=== PATIENT | female | born 1955 | race Caucasian/White ===

== ENCOUNTER 2019-05-02 06:39 | Emergency (ER) | payer MEDICARE ==
[~2019-05-02] VITALS: Ht 162.6 cm; Wt 40.8 kg
--- NOTE | 2019-05-02 06:45 | NUR ---
PT AAOX4. AMBULATORY WITH GAIT. C/O RT HAND PAIN, SWELLING, DISCOLORATION S/P TRIP & FALL ON STAIRS X LAST TUESDAY. PT ABLE TO MOVE EXTREMITY WITH FULL RANGE. AWAITING FOR MD FOR EVAL. DAS.
--- NOTE | 2019-05-02 07:10 | NUR ---
XRAY AT BEDSIDE
--- NOTE | 2019-05-02 08:24 | NUR ---
Patient discharged to home in stable condition. Written and verbal after care instructions given. Patient verbalizes understanding of instruction.
[2019-05-02 08:25] VITALS: BP 144/88
== END 2019-05-02 08:25 | disposition home or self-care (01) ==
LOC: ER 06:43
DX: S52.571A Other intraarticular fracture of lower end of right radius, initial encounter for closed fracture (principal); Z60.2 Problems related to living alone; W01.0XXA Fall on same level from slipping, tripping and stumbling without subsequent striking against object, initial encounter; Y93.89 Activity, other specified; Y92.89 Other specified places as the place of occurrence of the external cause; Y99.8 Other external cause status
CPT/HCPCS: 73110; 73130-TC

== ENCOUNTER 2021-11-09 09:14 | Inpatient (IN) | payer MEDICARE ==
[~2021-11-09] VITALS: Ht 162.6 cm; Wt 37.3 kg
--- NOTE | 2021-11-09 09:30 | NUR ---
BIB RA 878FROM HOME,C/O GENERALIZED WEAKNESS X 1 WEEK. ATTACHED TO MONITOR, HR ELEVATED, MD AWARE. PT IS A FEBRILE. PT LIVES AT HOME BY HERSELF AND STATED THE LAST WEEK SHE HAS BEEN FEELING WEAK AND DOES NOT HAVE ENOUGH ENERGY TO LEAVE HER HOUSE. AWAITING MD ORDERS.
--- NOTE | 2021-11-09 09:33 | NUR ---
IV ESTABLIHSED R AC 20G. LABS DRAWNA ND COLLECTED AT BEDSIDE.
--- NOTE | 2021-11-09 09:40 | NUR ---
PT ABLE TO AMBULATE TO THE RESTROOM WITH ASSISTANCE, URINE COLLECTED AND SENT.
--- NOTE | 2021-11-09 09:46 | NUR ---
COVID SWAB COLLECTED AND SENT TO LAB
[2021-11-09 10:00] LABS: EOSINOPHILS % (AUTO) 0.2 % (0.0-6.0); HEMATOCRIT 36 % (33-45); HEMOGLOBIN 11.7 g/dL (11.5-14.8); LYMPHOCYTES # (AUTO) 0.4 K/uL (0.8-4.8); LYMPHOCYTES % (AUTO) 5.1 % (20.0-44.0); MEAN CORPUSCULAR HGB CONC 33 g/dl (31.0-36.0); MEAN CORPUSCULAR VOLUME 77 fL (82-100); MONOCYTES # (AUTO) 0.3 K/uL (0.1-1.30); MONOCYTES % (AUTO) 3.6 % (2.0-12.0); NEUTROPHILS # (AUTO) 7.4 K/uL (1.8-8.9); NEUTROPHILS % (AUTO) 91.1 % (43.0-81.0); RED BLOOD CELL COUNT(AUTO) 4.65 MIL/uL (4.0-5.2); WHITE BLOOD COUNT (AUTO) 8.1 K/uL (4.3-11.0)
[2021-11-09 10:10] LABS: BILIRUBIN,URINE MODERATE (NEGATIVE); COLOR,URINE YELLOW (YELLOW); LEUKOCYTE ESTERASE ,URINE NEGATIVE (NEGATIVE); NITRITE, URINE NEGATIVE (NEGATIVE); PROTEIN,URINE TRACE mg/dl (NEGATIVE); UGLUCOSE NEGATIVE (NEGATIVE); UROBILINOGEN,URINE 0.2 EU/dL (0.2)
[2021-11-09] MEDS ORDERED: SERT100T12 PO (10:15)
[2021-11-09] MEDS ORDERED: QUET25TA PO (10:15)
[2021-11-09] MEDS ORDERED: LORA-259 PO (10:15)
[2021-11-09 10:18] LABS: BACTERIA,URINE None seen /HPF (None Seen); RBC,URINE 0-2 /HPF (0-2); SQUAMOUS EPITHELIAL CELL,UR Few /HPF (None Seen)
[2021-11-09 10:24] LABS: PLATELET COUNT (AUTO) 974 K/uL (150-450)
[2021-11-09 10:36] LABS: CALCIUM, SERUM 8.6 mg/dL (8.5-10.1); CARBON DIOXIDE 25 mmol/L (21-32); CHLORIDE 98 mmol/L (98-107); GLUCOSE 146 mg/dL (74-106); SODIUM SERUM 136 mmol/L (136-145); UREA NITROGEN, BLOOD 12 mg/dL (7-18)
[2021-11-09 10:56] LABS: ALANINE AMINOTRANSFERASE 28 U/L (12-78); ALBUMIN 2.5 g/dL (3.4-5.0); ALCOHOL, BLOOD < 3 mg/dL (0-0); ALKALINE PHOSPHATASE 119 U/L (46-116); ASPARTATE AMINOTRANSFERASE 25 U/L (15-37); BILIRUBIN,DIRECT 0.1 mg/dL (0.0-0.2); BILIRUBIN,TOTAL 0.5 mg/dL (0.2-1.0); TOTAL PROTEIN, SERUM 5.9 g/dL (6.4-8.2)
[2021-11-09] MEDS ORDERED: ACETAMINOPHEN 325 MG TABLET PO PRN (11:00)
[2021-11-09] MEDS ORDERED: MAG HYDROX/AL HYDROX/SIMETH 30 ML UDC PO PRN (11:00)
[2021-11-09] MEDS ORDERED: MAGNESIUM HYDROXIDE 30 ML UDC PO PRN (11:00)
[2021-11-09] MEDS ORDERED: ONDANSETRON HCL/PF 4 MG/2 ML VIAL IVP PRN (11:00)
[2021-11-09] MEDS ORDERED: Z GUARD REMEDY 4 OZ OINT TP PRN (11:00)
[2021-11-09 11:07] LABS: ACETAMINOPHEN 0 ug/ml (10-30)
--- NOTE | 2021-11-09 12:37 | NUR ---
ROOM 328; ALBERTO BELLO, WILL CALL BACK FOR REPORT
--- NOTE | 2021-11-09 13:16 | NUR ---
PT REPORT GIVEN TO ALBERTO RODRIGUEZ.
--- NOTE | 2021-11-09 13:16 | NUR ---
PT TRANSFERRED TO [facility] VIA RNEY. WARM HANDOFF GIVEN TO JENNIFER/EUGENIA DOMINGUEZ
--- NOTE | 2021-11-09 13:20 | NUR ---
RN OPENING NOTES PT ARRIVED ON UNIT AT 1315 WITH CHIEF COMPLAINT OF GENERALIZED WEAKNESS AND FAILURE TO THRIVE. A/O X 4 AND ABLE TO MAKE NEEDS KNOWN. DENIES PAIN AND NO RESPIRATORY DISTRESS NOTED AT THIS TIME. SHE IS ORIENTED TO UNIT AND ROOM. ALL NEEDS MET AT THIS TIME. CALL LIGHT WITHIN REACH. TABLE WITHIN EACH. BED IN LOW POSITION BED ALARM ON.
[2021-11-09] MEDS ORDERED: POTASSIUM CHLORIDE 20 MEQ TAB.PRT.SR PO ONE (15:00)
[2021-11-09] MEDS: ASPIRIN EC 81 MG TABLET.DR PO SCH (17:31)
[2021-11-09] MEDS: QUETIAPINE FUMARATE 25 MG TABLET PO SCH (17:31)
[2021-11-09 18:43] LABS: IRON, SERUM 40 ug/dl (50-175); TOTAL IRON BINDING CAPACITY 188 ug/dl (250-450)
[2021-11-09] MEDS: HYDROXYUREA 500 MG CAPSULE PO SCH (18:43)
[2021-11-09 18:56] LABS: FERRITIN 157 ng/mL (8-388)
--- NOTE | 2021-11-09 19:42 | NUR ---
MS RN NOTES PT RECEIVED IN BED A/O X4 ABLE TO MAKE NEEDS KNOW. IN NO PAIN. OR RESPIRATORY DISTRESS NOTED AT THIS TIME. PT ORIENTED TO UNIT AND ROOM. ALL NEEDS MET AT THIS TIME. CALL LIGHT WITHIN REACH. TABLE WITHIN EACH. BED IN LOW POSITION BED ALARM ON.
--- NOTE | 2021-11-09 19:45 | NUR ---
RN CLOSING NOTES PT IS A/O X 4 AND ABLE TO MAKE NEEDS KNOWN. DENIES PAIN AND NO RESPIRATORY DISTRESS NOTED AT THIS TIME. SHE IS ORIENTED TO UNIT AND ROOM. SWALLOWS PILLS WHOLE WITHOUT DIFFICULTY. ALL NEEDS MET AT THIS TIME. CALL LIGHT WITHIN REACH. TABLE WITHIN EACH. BED IN LOW POSITION BED ALARM ON.
[2021-11-09 20:00] VITALS: BP 124/69
[2021-11-10 06:39] LABS: BASOPHILS % (AUTO) 0.2 % (0.0-2.0); EOSINOPHILS % (AUTO) 0.1 % (0.0-6.0); HEMATOCRIT 32 % (33-45); HEMOGLOBIN 10.5 g/dL (11.5-14.8); LYMPHOCYTES # (AUTO) 0.5 K/uL (0.8-4.8); LYMPHOCYTES % (AUTO) 6.9 % (20.0-44.0); MEAN CORPUSCULAR HGB CONC 33 g/dl (31.0-36.0); MEAN CORPUSCULAR VOLUME 78 fL (82-100); MONOCYTES # (AUTO) 0.4 K/uL (0.1-1.30); MONOCYTES % (AUTO) 5.1 % (2.0-12.0); NEUTROPHILS # (AUTO) 6.4 K/uL (1.8-8.9); NEUTROPHILS % (AUTO) 87.7 % (43.0-81.0); PLATELET COUNT (AUTO) 827 K/uL (150-450); RED BLOOD CELL COUNT(AUTO) 4.15 MIL/uL (4.0-5.2); WHITE BLOOD COUNT (AUTO) 7.3 K/uL (4.3-11.0)
--- NOTE | 2021-11-10 06:54 | NUR ---
RN OPENING NOTES PT IS A/O X 4 AND ABLE TO MAKE NEEDS KNOWN. DENIES PAIN AND NO RESPIRATORY DISTRESS NOTED AT THIS TIME. SHE IS ORIENTED TO UNIT AND ROOM. SWALLOWS PILLS WHOLE WITHOUT DIFFICULTY. ALL NEEDS MET AT THIS TIME. CALL LIGHT WITHIN REACH. TABLE WITHIN EACH. BED IN LOW POSITION BED ALARM ON. PT FOR CT WITH CONTRAST OF THE ABDOMEN AND PELVIS WILL OBTAIN CONSENT.
[2021-11-10 06:58] LABS: CALCIUM, SERUM 8.2 mg/dL (8.5-10.1); CREATININE 0.9 mg/dL (0.6-1.3); MAGNESIUM 2.1 mg/dL (1.8-2.4); PHOSPHORUS 2.9 mg/dL (2.5-4.9); POTASSIUM 3.2 mmol/L (3.5-5.1)
--- NOTE | 2021-11-10 07:10 | NUR ---
MS RN OPENING NOTES RECEIVED PATIENT AWAKE IN BED, ON ROOM AIR NO S/S OF RESPIRATORY DISTRESS. A/Ox4, ABLE TO MAKE NEEDS KNOWN. NO COMPLAINT OF PAIN OR DISCOMFORT. IV ACCESS R AC #20 G SL. INTACT AND PATENT. INCONTINENT, ON BED REST. SKIN IS INTACT. CURRENTLY NPO EXCEPT MEDS FOR CT SCAN OF ABDOMEN. SAFETY MEASURES IN PLACE: BED LOCKED AND IN LOWEST POSITION, SIDE RAILS UP x2, CALL LIGHT WITHIN REACH, HOB ELEVATED. WILL CONTINUE TO MONITOR.
[2021-11-10] MEDS: PANTOPRAZOLE 40 MG TABLET.DR PO SCH (07:30)
[2021-11-10 08:00] VITALS: BP 136/73
[2021-11-10] MEDS: SERTRALINE HCL 50 MG TABLET PO SCH (08:11)
[2021-11-10] MEDS: HYDROXYUREA 500 MG CAPSULE PO SCH (08:12)
[2021-11-10] MEDS: QUETIAPINE FUMARATE 25 MG TABLET PO SCH ×2 (08:12→16:20)
[2021-11-10] MEDS: ASPIRIN EC 81 MG TABLET.DR PO SCH (08:13)
[2021-11-10] MEDS ORDERED: POTASSIUM CHLORIDE 20 MEQ TAB.PRT.SR PO ONE (10:00)
--- NOTE | 2021-11-10 10:03 | NUR ---
RN NOTES PATIENT BEING TAKEN DOWN FOR CAT SCAN ACCOMPANIED BY 2 RADIOLOGY TECHS. PATIENT LEFT IN STABLE CONDITION.
[2021-11-10] MEDS ORDERED: IOHEXOL-300 100 ML VIAL IV ONE (10:07)
[2021-11-10] MEDS ORDERED: IV NS 0.9% 250 ML IV ONE (10:07)
[2021-11-10] MEDS ORDERED: CT SWABBABLE VALVE TRANS SET 1 EA INFUS.SET MC ONE (10:08)
--- NOTE | 2021-11-10 10:30 | NUR ---
RN NOTES PATIENT RETURNED FROM CT SCAN, STABLE, WILL NOTIFY MD OF RESULTS SOON AVAILABLE.
[2021-11-10] MEDS: IV NS 0.9% 1,000 ML IV SCH ×2 (10:39→23:59)
[2021-11-10] MEDS: ENSURE ENLIVE 237 ML LIQUID (VANILLA) PO SCH ×2 (12:13→17:16)
[2021-11-10 12:41] LABS: LYMPHOCYTES % (MANUAL) 6 % (16-48); MONOCYTES % (MANUAL) 4 % (0-11.0); NEUTROPHILS % (MANUAL) 90 (42-76)
[2021-11-10] MEDS: LORAZEPAM 1 MG TABLET PO PRN (12:45)
[2021-11-10] MEDS ORDERED: ENSURE ENLIVE 237 ML LIQUID (VANILLA) PO SCH (13:00)
--- NOTE | 2021-11-10 13:31 | NUR ---
RN NOTES PATIENT EXPRESSED OVERWHELMING FEELING, PRN ATIVAN ADMINISTERED @1245. WILL CONTINUE TO MONITOR.
[2021-11-10 16:02] VITALS: BP 125/65
[2021-11-10] MEDS: FERROUS SULFATE (325 MG) 325 MG/TAB TABLET PO SCH (16:21)
--- NOTE | 2021-11-10 18:40 | NUR ---
MS RN CLOSING NOTES PATIENT AWAKE IN BED WATCHING TV, STABLE ON ROOM AIR NO S/S OF RESPIRATORY DISTRESS. A/Ox4, ABLE TO MAKE NEEDS KNOWN. NO COMPLAINT OF PAIN OR DISCOMFORT. IV ACCESS R AC #20 G SL. INTACT AND PATENT. CONTINENT, AMB WITH SUPERVISION. SKIN IS INTACT. ALL PRESCRIBED MEDICATION ADMINISTERED. SAFETY MEASURES MAINTAINED: BED LOCKED AND IN LOWEST POSITION, SIDE RAILS UP x2, CALL LIGHT WITHIN REACH, HOB ELEVATED. WILL ENDORSE TO NEXT SHIFT ANY ERIS.
--- NOTE | 2021-11-10 19:40 | NUR ---
MS RN OPENING NOTES RECEIVED PATIENT IN BED; AWAKE, ALERT AND ORIENTED X 4. ON ROOM AIR; TOLERATING WELL. BREATHING EVEN AND NONLABORED. NOT IN ANY FORM OF RESPIRATORY DISTRESS. ABLE TO MAKE NEEDS KNOWN. WITH IV ACCESS ON RIGHT ANTECUBITAL 18g: PATENT AND INTACT INFUSING WITH NS 1L REGULATED @ 75 ML/HR; FLUSHES WELL. NO C/O PAIN OR DISCOMFORT AT THIS TIME. SAFETY MEASURES IMPLEMENTED: CALL LIGHT AND TABLE WITHIN EASY REACH, SIDE RAILS UP X 2, BED IN LOWEST LOCKED POSITION. WILL CONTINUE PLAN OF CARE.
[2021-11-10 19:57] VITALS: BP 102/59
[2021-11-10 20:00] VITALS: BP 112/59
--- NOTE | 2021-11-11 07:05 | NUR ---
MS RN CLOSING NOTES PATIENT IN BED; AWAKE, A/O X 4. STABLE ON ROOM AIR. RESPIRATION EVEN AND NONLABORED. IN NO APPARENT DISTRESS. WITH IV ACCESS ON RIGHT ANTECUBITAL 18g: PATENT AND INTACT INFUSING WITH NS 1L REGULATED @ 75 ML/HR; FLUSHES WELL. NO C/O PAIN OR DISCOMFORT AT THIS TIME. ALL NEEDS ATTENDED. SAFETY MEASURES MAINTAINED: CALL LIGHT AND TABLE WITHIN EASY REACH, SIDE RAILS UP X 2, BED IN LOWEST LOCKED POSITION. ENDORSED TO MORNING SHIFT FOR ERIS.
[2021-11-11 07:20] LABS: BASOPHILS % (AUTO) 0.3 % (0.0-2.0); EOSINOPHILS % (AUTO) 0.2 % (0.0-6.0); HEMATOCRIT 33 % (33-45); HEMOGLOBIN 10.7 g/dL (11.5-14.8); LYMPHOCYTES # (AUTO) 1.1 K/uL (0.8-4.8); LYMPHOCYTES % (AUTO) 13.7 % (20.0-44.0); MEAN CORPUSCULAR HGB CONC 33 g/dl (31.0-36.0); MEAN CORPUSCULAR VOLUME 78 fL (82-100); MONOCYTES # (AUTO) 0.4 K/uL (0.1-1.30); MONOCYTES % (AUTO) 4.7 % (2.0-12.0); NEUTROPHILS # (AUTO) 6.3 K/uL (1.8-8.9); NEUTROPHILS % (AUTO) 81.1 % (43.0-81.0); RED BLOOD CELL COUNT(AUTO) 4.22 MIL/uL (4.0-5.2); WHITE BLOOD COUNT (AUTO) 7.8 K/uL (4.3-11.0)
--- NOTE | 2021-11-11 07:30 | NUR ---
RN Opening Note PT AOx4 able to express her own concerns. Patient with no signs of distress. IV shows no signs of infiltration, no pain reported on IV site. Patient able to reposition herself as needed.Will continue to monitor patient, administer medications as ordered and provide care as needed. All safety precautions taken, call light and table within reach, bed at lowest position.
[2021-11-11 07:39] LABS: CALCIUM, SERUM 8.7 mg/dL (8.5-10.1); CREATININE 0.9 mg/dL (0.6-1.3); POTASSIUM 4.3 mmol/L (3.5-5.1)
[2021-11-11 07:53] LABS: PLATELET COUNT (AUTO) 936 K/uL (150-450)
[2021-11-11 08:00] VITALS: BP 132/83
[2021-11-11] MEDS: ASPIRIN EC 81 MG TABLET.DR PO SCH (08:31)
[2021-11-11] MEDS: QUETIAPINE FUMARATE 25 MG TABLET PO SCH ×2 (08:31→16:41)
[2021-11-11] MEDS: SERTRALINE HCL 50 MG TABLET PO SCH (08:31)
[2021-11-11] MEDS: FERROUS SULFATE (325 MG) 325 MG/TAB TABLET PO SCH ×2 (08:31→16:41)
[2021-11-11] MEDS: PANTOPRAZOLE 40 MG TABLET.DR PO SCH (08:31)
[2021-11-11] MEDS: ENSURE ENLIVE 237 ML LIQUID (VANILLA) PO SCH ×3 (08:32→16:41)
[2021-11-11] MEDS: HYDROXYUREA 500 MG CAPSULE PO SCH ×2 (08:32→16:41)
[2021-11-11] MEDS: IV NS 0.9% 1,000 ML IV SCH (12:00)
[2021-11-11] MEDS ORDERED: SOD FERRIC GLUC 125 MG in IV NS 0.9% 100 ML IV SCH (14:00)
[2021-11-11] MEDS: LORAZEPAM 1 MG TABLET PO PRN (15:15)
[2021-11-11 16:00] VITALS: BP 135/70
[2021-11-11] MEDS: SOD FERRIC GLUC 125 MG in IV NS 0.9% 100 ML IV SCH (18:59)
--- NOTE | 2021-11-11 19:24 | NUR ---
RN Closing Notes PT AO x4, able to express her own concerns, states discomfort from rectal prolapse.Patient signed consent for procedure, filed in chart. Provided care and medications as prescribed. Patient remained safe throughout shift. All safety precautions taken, call light and table within reach and bed at lowest position.
--- NOTE | 2021-11-11 19:30 | NUR ---
RN OPENING NOTES RECEIVED PT IN BED, AWAKE, SITTING UPRIGHT, WATCHING TV. AOx4, ABLE TO MAKE NEEDS KNOWN. ON RA AND TOLERATING WELL. NO SOB NOTED. NO S/SX OF RESPIRATORY DISTRESS NOTED. IV ACCESS IN RFA #20G RUNNING NS @ 75 ML/HR. SAFETY PRECAUTIONS IN PLACE: BED IN LOWEST, LOCKED POSITION, SIDERAILS UPx2, AND BRAKES ON. TABLE AND CALL LIGHT WITHIN REACH. ALL NEEDS MET AT THIS TIME.
[2021-11-11 20:00] VITALS: BP 107/65
[2021-11-12] MEDS: IV NS 0.9% 1,000 ML IV SCH (00:33)
--- NOTE | 2021-11-12 00:38 | NUR ---
RN NOTES ADMINISTERED TYLENOL FOR CRAMPS PER MD ORDER.
--- NOTE | 2021-11-12 06:46 | NUR ---
RN CLOSING NOTES PT IN BED, AWAKE, SITTING UPRIGHT, WATCHING TV. AOx4, ABLE TO MAKE NEEDS KNOWN. ON RA AND TOLERATING WELL. NO SOB NOTED. NO S/SX OF RESPIRATORY DISTRESS NOTED. IV ACCESS IN RFA #20G RUNNING NS @ 75 ML/HR. ALL ORDERS CARRIED OUT. ALL NEEDS MET. PT KEPT CLEAN AND DRY. SAFETY PRECAUTIONS IN PLACE: BED IN LOWEST, LOCKED POSITION, SIDERAILS UPx2, AND BRAKES ON. TABLE AND CALL LIGHT WITHIN REACH. WILL ENDORSE TO ONCOMING SHIFT FOR ERIS.
--- NOTE | 2021-11-12 07:30 | NUR ---
MS RN OPENING NOTES RECEIVED PT IN BED, AWAKE, SITTING UPRIGHT, WATCHING TV. AOx4, ABLE TO MAKE NEEDS KNOWN. ON RA AND TOLERATING WELL. NO SOB NOTED. NO S/SX OF RESPIRATORY DISTRESS NOTED. IV ACCESS IN RIGHT WRIST #20G RUNNING NS @ 75 ML/HR. ALL SAFETY PRECAUTIONS IN PLACE: BED IN LOWEST, LOCKED POSITION, SIDERAILS UPx2, AND BRAKES ON. TABLE AND CALL LIGHT WITHIN REACH. ALL NEEDS ATTENDED. WILL CONTINUE TO MONITOR.
[2021-11-12] MEDS: PANTOPRAZOLE 40 MG TABLET.DR PO SCH (07:54)
[2021-11-12] MEDS: ENSURE ENLIVE 237 ML LIQUID (VANILLA) PO SCH ×2 (08:44→14:00)
[2021-11-12] MEDS: SERTRALINE HCL 50 MG TABLET PO SCH (08:45)
[2021-11-12] MEDS: QUETIAPINE FUMARATE 25 MG TABLET PO SCH (08:45)
[2021-11-12] MEDS: ASPIRIN EC 81 MG TABLET.DR PO SCH (08:45)
[2021-11-12] MEDS: HYDROXYUREA 500 MG CAPSULE PO SCH (08:45)
[2021-11-12] MEDS: FERROUS SULFATE (325 MG) 325 MG/TAB TABLET PO SCH (08:45)
[2021-11-12 09:07] LABS: *ANA ANTI-CENTROMERE B AB <0.2 AI (0.0-0.9); *ANA ANTI-DNA(DS) AB, QN 1 IU/mL (0-9); *ANA ANTI-JO-1 <0.2 AI (0.0-0.9); *ANA ANTICHROMATIN ANTIBODY <0.2 AI (0.0-0.9); *ANA RNP ANTIBODIES <0.2 AI (0.0-0.9); *ANA SJOGREN'S ANTI-SS-A <0.2 AI (0.0-0.9); *ANA SJOGREN'S ANTI-SS-B <0.2 AI (0.0-0.9); *ANAANTI-SCLERODERMA-70 AB <0.2 AI (0.0-0.9); *ANASMITH AB <0.2 AI (0.0-0.9)
[2021-11-12] MEDS: LORAZEPAM 1 MG TABLET PO PRN (14:00)
--- NOTE | 2021-11-12 14:00 | NUR ---
RN NOTES CALLED RASHEED FROM [facility] AT 1400 BY PHONE NUMBER [phone] AND GAVE REPORT FOR THE PATIENT.
[2021-11-12 14:23] LABS: BASOPHILS % (AUTO) 0.7 % (0.0-2.0); EOSINOPHILS % (AUTO) 1.8 % (0.0-6.0); HEMATOCRIT 27 % (33-45); HEMOGLOBIN 8.9 g/dL (11.5-14.8); LYMPHOCYTES # (AUTO) 0.3 K/uL (0.8-4.8); MEAN CORPUSCULAR HGB CONC 33 g/dl (31.0-36.0); MEAN CORPUSCULAR VOLUME 78 fL (82-100); MONOCYTES # (AUTO) 0.1 K/uL (0.1-1.30); MONOCYTES % (AUTO) 2.3 % (2.0-12.0); NEUTROPHILS # (AUTO) 4.9 K/uL (1.8-8.9); NEUTROPHILS % (AUTO) 89.2 % (43.0-81.0); PLATELET COUNT (AUTO) 482 K/uL (150-450); RED BLOOD CELL COUNT(AUTO) 3.48 MIL/uL (4.0-5.2); WHITE BLOOD COUNT (AUTO) 5.5 K/uL (4.3-11.0)
[2021-11-12] MEDS: SOD FERRIC GLUC 125 MG in IV NS 0.9% 100 ML IV SCH ×2 (14:45→14:53)
--- NOTE | 2021-11-12 15:21 | NUR ---
SS NOTE: SS consult requested to evaluate the pt.'s living situation. The pt. is a 66 year old female who was admitted to Med Surg for failure to thrive. Per EMR, the pt. currently lives alone at home [[id number] [facility] [id number]. PER documentation, the pt. has agreed to be discharged to [facility] [phone], this is a safe and appropriate discharge plan for patient considering her situation.
[2021-11-12] MEDS ORDERED: HYDR500C PO (15:44)
--- NOTE | 2021-11-12 16:00 | NUR ---
RN NOTES DISCHARGE PATIENT WITH STABLE VITAL SIGNS AND STABLE CONDITION. 2 MT ARRIVED. ALL THE BELONGINGS ACCOUNTED AND SIGNED FOR. IV SITE REMOVED. COVERED WITH DRY DRESSING , NO BLEEDING NOTED. ID BAND REMOVED. PATIENT WITH STABLE CONDITION. ALL THE DISCHARGE INSTRUCTIONS GIVEN TO TANISHA DOMINGUEZ AT FACILITY. PATIENT WILL HAVE BIOPSY AFTER DISCHARGE AND WILL FOLLOW UP WITH ONCOLOGIST AFTER DISCHARGE. ALL NEEDS ATTENDED. PATIENT LEFT HOSPITAL AT 1600 WITH STABLE CONDITION. MD AND CHARGE NURSE AWARE OF THE DISCHARGE.
== END 2021-11-12 16:30 | DRG 641 ==
LOC: ER 09:30 → MED 12:20
PROVIDERS: ATTEND Internal Medicine
DX: R62.7 Adult failure to thrive (principal); E44.0 Moderate protein-calorie malnutrition; Z68.1 Body mass index [BMI] 19.9 or less, adult; R64 Cachexia; F33.3 Major depressive disorder, recurrent, severe with psychotic symptoms; Z20.822 Contact with and (suspected) exposure to COVID-19; D75.839 Thrombocytosis, unspecified; E87.6 Hypokalemia; E88.09 Other disorders of plasma-protein metabolism, not elsewhere classified; D50.9 Iron deficiency anemia, unspecified; F41.9 Anxiety disorder, unspecified
CPT/HCPCS: 36415; 71260-TC; 80048-TC; 80076-TC; 81001; 82728-TC; 83540-TC; 83735-TC; 84100-TC; 85025-TC; 86140-TC; 86225; 86235; 86431-TC; 97116-TC; 97530-TC; C9803; G0378; G0480; J2916; J7030; J7050; Q9967

== ENCOUNTER 2021-12-09 15:23 | Inpatient (IN) | payer MEDICARE ==
[~2021-12-09] VITALS: Ht 162.6 cm; Wt 42.0 kg
[~2021-12-09 15:23] MED LIST: HYDR500C PO; LORA-259 PO; QUET25TA PO; SERT100T12 PO
[2021-12-09] MEDS ORDERED: ONDANSETRON HCL/PF 4 MG/2 ML VIAL IVP ONE (16:00)
[2021-12-09] MEDS ORDERED: IV NS 0.9% 1,000 ML BAG IV ONE (16:00)
--- NOTE | 2021-12-09 16:20 | NUR ---
IV LINE ESTABLISHED ON JOHNNY #20, BLOOD DRAWN AND SENT TO LAB
[2021-12-09] MEDS ORDERED: ONDANSETRON HCL/PF 4 MG/2 ML VIAL ONE (16:28)
--- NOTE | 2021-12-09 16:30 | NUR ---
CONSENT FOR BLOOD TRANSFUSION SIGNED BY PT AND PLACED IN THE CHART.
[2021-12-09 16:36] LABS: BASOPHILS # (AUTO) 0.1 K/uL (0.0-0.2); BASOPHILS % (AUTO) 0.7 % (0.0-2.0); HEMATOCRIT 23 % (33-45); LYMPHOCYTES # (AUTO) 0.8 K/uL (0.8-4.8); LYMPHOCYTES % (AUTO) 11.7 % (20.0-44.0); MEAN CORPUSCULAR HGB CONC 31 g/dl (31.0-36.0); MEAN CORPUSCULAR VOLUME 88 fL (82-100); MONOCYTES # (AUTO) 0.3 K/uL (0.1-1.30); MONOCYTES % (AUTO) 4.6 % (2.0-12.0); PLATELET COUNT (AUTO) 433 K/uL (150-450); RED BLOOD CELL COUNT(AUTO) 2.56 MIL/uL (4.0-5.2)
[2021-12-09] MEDS ORDERED: ONDA4TAB5 PO (16:47)
[2021-12-09] MEDS ORDERED: HYDR500C2 PO (16:47)
[2021-12-09] MEDS ORDERED: MAG30ORA PO (16:47)
[2021-12-09] MEDS ORDERED: ASPI-1420 PO (16:47)
[2021-12-09] MEDS ORDERED: MAGN400O6 PO (16:47)
[2021-12-09] MEDS ORDERED: NA P133E RC (16:47)
[2021-12-09] MEDS ORDERED: FERR325T23 PO (16:47)
[2021-12-09] MEDS ORDERED: DOCU-141 PO (16:47)
[2021-12-09] MEDS ORDERED: VITA1TAB56 PO (16:47)
[2021-12-09] MEDS ORDERED: PANT40TA2 PO (16:47)
[2021-12-09] MEDS ORDERED: ACET-868 PO (16:47)
--- NOTE | 2021-12-09 17:04 | NUR ---
COVID SWAB COLLECTED AND SENT TO LAB
--- NOTE | 2021-12-09 17:07 | NUR ---
HGB 7.0/HCT 23; DR ALVARADO MADE AWARE.
[2021-12-09 17:11] LABS: ALANINE AMINOTRANSFERASE 19 U/L (12-78); ALBUMIN 2.3 g/dL (3.4-5.0); ALKALINE PHOSPHATASE 75 U/L (46-116); ASPARTATE AMINOTRANSFERASE 24 U/L (15-37); BILIRUBIN,DIRECT 0.1 mg/dL (0.0-0.2); BILIRUBIN,TOTAL 0.2 mg/dL (0.2-1.0); CALCIUM, SERUM 8.2 mg/dL (8.5-10.1); CARBON DIOXIDE 31 mmol/L (21-32); CHLORIDE 103 mmol/L (98-107); CREATININE 0.6 mg/dL (0.6-1.3); GLUCOSE 94 mg/dL (74-106); LIPASE 85 U/L (73-393); POTASSIUM 3.5 mmol/L (3.5-5.1); SODIUM SERUM 139 mmol/L (136-145); TOTAL PROTEIN, SERUM 5.5 g/dL (6.4-8.2); UREA NITROGEN, BLOOD 12 mg/dL (7-18)
--- NOTE | 2021-12-09 17:13 | NUR ---
[facility] PAGED
[2021-12-09] MEDS ORDERED: PANTOPRAZOLE 40 MG VIAL ONE (18:15)
[2021-12-09] MEDS ORDERED: PANTOPRAZOLE 40 MG VIAL IV ONE (18:30)
[2021-12-09 18:56] LABS: BAND % (MANUAL) 1 % (0.0-5.0); EOSINOPHILS % (MANUAL) 11 % (0-4); LYMPHOCYTES % (MANUAL) 13 % (16-48); MONOCYTES % (MANUAL) 3 % (0-11.0); NEUTROPHILS % (MANUAL) 72 (42-76)
[2021-12-09] MEDS ORDERED: MAGNESIUM HYDROXIDE 30 ML UDC PO PRN ×2 (19:00)
[2021-12-09] MEDS ORDERED: Z GUARD REMEDY 4 OZ OINT TP PRN (19:00)
[2021-12-09] MEDS ORDERED: ONDANSETRON HCL/PF 4 MG/2 ML VIAL IVP PRN (19:00)
[2021-12-09] MEDS ORDERED: ACETAMINOPHEN 325 MG TABLET PO PRN ×2 (19:00)
[2021-12-09] MEDS ORDERED: MAG HYDROX/AL HYDROX/SIMETH 30 ML UDC PO PRN ×2 (19:00)
--- NOTE | 2021-12-09 20:19 | NUR ---
REPORT GIVEN TO STEPHEN iKngW FOR ERIS
--- NOTE | 2021-12-09 20:42 | NUR ---
PT TRANSFERRED TO [facility] VIA ACLS PROTOCOL. VSS. ALL BELONGINGS WITH PT.
--- NOTE | 2021-12-09 21:30 | NUR ---
AUTOMATIC WASHER MECHANICBEACH LIFEGUARD NOTE PATIENT ARRIVED FROM ER, PATIENT ALERT/ORIENTED X 3, PT ABLE TO MAKE NEEDS KNOWN. PATIENT DENIES PAIN AT THIS TIME. PATIENT STABLE ON RA, NO S/S OF DISTRESS OR SOB NOTED, BREATHING EVEN AND UNLABORED. EXTERNAL PAPER REWINDER PLACED ON PATIENT, PATIENT SINUS RHYTHM. IV ACCESS ON RIGHT AC #20G INTACT BUT NOT FLUSHING, NEW IV INSERTED ON LEFT FOREARM #20G. CONSENT FORM FOR BLOOD TRANSFUSION SIGNED BY PATIENT. ORIENTED PATIENT TO ROOM AND HOW TO USE CALL LIGHT. PATIENT AMBULATORY. SAFETY MEASURES IN PLACE: CALL LIGHT WITHIN REACH, SIDE RAILS UP X 2, BED LOCKED IN LOWEST POSITION, BED ALARM ON. WILL CONTINUE TO MONITOR PATIENT
[2021-12-09 22:00] VITALS: BP 130/70
[2021-12-09 22:16] VITALS: BP 123/57
[2021-12-09 22:46] VITALS: BP 130/63
[2021-12-10] VITALS (7 sets, daily range): BP systolic 123–142; BP diastolic 46–73
--- NOTE | 2021-12-10 01:04 | NUR ---
POULTRY HUSBANDRY WORKER NOTE BLOOD TRANSFUSION FINISHED INFUSING, PATIENT TOLERATED WELL, NO ADVERSE EFFECTS NOTED. VITAL SIGNS WNL. WILL CONTINUE TO MONITOR PATIENT
[2021-12-10 06:20] LABS: EOSINOPHILS % (AUTO) 15.3 % (0.0-6.0); HEMATOCRIT 24 % (33-45); LYMPHOCYTES # (AUTO) 0.5 K/uL (0.8-4.8); LYMPHOCYTES % (AUTO) 11.1 % (20.0-44.0); MEAN CORPUSCULAR HGB CONC 33 g/dl (31.0-36.0); MEAN CORPUSCULAR VOLUME 86 fL (82-100); MONOCYTES # (AUTO) 0.2 K/uL (0.1-1.30); MONOCYTES % (AUTO) 5.9 % (2.0-12.0); NEUTROPHILS # (AUTO) 2.8 K/uL (1.8-8.9); NEUTROPHILS % (AUTO) 66.7 % (43.0-81.0); PLATELET COUNT (AUTO) 382 K/uL (150-450); RED BLOOD CELL COUNT(AUTO) 2.85 MIL/uL (4.0-5.2); WHITE BLOOD COUNT (AUTO) 4.2 K/uL (4.3-11.0)
[2021-12-10 06:37] LABS: ALBUMIN 1.9 g/dL (3.4-5.0); BILIRUBIN,TOTAL 0.2 mg/dL (0.2-1.0); CALCIUM, SERUM 7.8 mg/dL (8.5-10.1); CREATININE 0.5 mg/dL (0.6-1.3); MAGNESIUM 2.1 mg/dL (1.8-2.4); PHOSPHORUS 3.3 mg/dL (2.5-4.9); POTASSIUM 3.4 mmol/L (3.5-5.1); TOTAL PROTEIN, SERUM 4.8 g/dL (6.4-8.2)
--- NOTE | 2021-12-10 06:51 | NUR ---
CUT OFF MAN CLOSING NOTE PATIENT AWAKE IN BED, ALERT/ORIENTED X 4, PT ABLE TO MAKE NEEDS KNOWN. NO C/O PAIN THIS SHIFT. PATIENT STABLE ON RA, NO S/S OF DISTRESS OR SOB NOTED, BREATHING EVEN AND UNLABORED. PATIENT ON EXTERNAL JAVA WEB ARCHITECT READING SINUS RHYTHM, HR: 83. PATIENT AMBULATORY TO BATHROOM, STEADY GAIT. PATIENT REPORTS SOME INCONTINENCE AND RECTAL BLEEDING, HAS BEEN HAPPENING FOR ABOUT A MONTH PER PATIENT. IV ACCESS ON LEFT FOREARM #20G INTACT AND SALINE LOCKED. PER PATIENT, WISHES TO BE DNR/DNI, WILL ENDORSE TO DAYSHIFT NURSE. PATIENT SKIN INTACT, SOME SACRAL REDNESS NOTED. MEDICATIONS GIVEN ORDERED, PT NEEDS MET THROUGHOUT SHIFT. SAFETY MEASURES IN PLACE: CALL LIGHT WITHIN REACH, SIDE RAILS UP X 2, BED LOCKED IN LOWEST POSITION. WILL ENDORSE TO DAYSHIFT NURSE FOR CONTINUITY OF CARE
--- NOTE | 2021-12-10 08:20 | NUR ---
MEDICAL EQUIPMENT REPAIR TECHNICIAN OPENING NOTES RECEIVED PATIENT RESTING IN BED. PATIENT IS A/O X 4. PATIENT IS AMBULATORY WITH BRP. IV ACCESS IS AT L FOREARM, 20 G SALINE LOCK. IV SITE IS PATENT AND DRY. NO S/S OF REDNESS NOR SWELLING. ON TELE MONITOR: SINUS RHYTHM AT 80'S BPM
[2021-12-10] MEDS ORDERED: POTASSIUM CHLORIDE 20 MEQ TAB.PRT.SR PO SCH (09:00)
[2021-12-10] MEDS: PANTOPRAZOLE 40 MG TABLET.DR PO SCH (09:04)
[2021-12-10] MEDS: QUETIAPINE FUMARATE 25 MG TABLET PO SCH ×2 (09:05→17:39)
[2021-12-10] MEDS: FERROUS SULFATE (325 MG) 325 MG/TAB TABLET PO SCH (09:05)
[2021-12-10] MEDS: DOCUSATE SODIUM 100 MG CAPSULE PO SCH (09:05)
--- NOTE | 2021-12-10 10:00 | NUR ---
PATIENT HAS BEEN SLEEPING IN BED WITH THE HOB ELEVATED > 45 DEGREE. OFFERED TO LOWER THE HOB, SHE SAID "I FEEL COMFORTABLE TIS WAY." SHE HAS BEEN SLEEPING IN BED QUIETLY, NO REPORTED PAIN NOR DISCOMFORT.
[2021-12-10] MEDS: ENSURE ENLIVE 237 ML LIQUID (VANILLA) PO SCH ×2 (11:39→17:39)
--- NOTE | 2021-12-10 18:56 | NUR ---
AUTO CLUB TRAVEL COUNSELOR CLOSING NOTES: RECEIVING PATIENT IN BED. ALERT/ORIENTED X 4. PT ABLE TO MAKE NEEDS KNOWN. NO C/O PAIN. PATIENT IS ON RA, TOLERATED WELL. NO S/S OF RESPIRATORY DISTRESS . PATIENT IS AMBULATORY TO BATHROOM, STEADY GAIT. IV ACCESS ON LEFT FOREARM #20G INTACT AND SALINE LOCKED. PATIENT SKIN INTACT. PT NEEDS MET THROUGHOUT SHIFT. SAFETY MEASURES IN PLACE: CALL LIGHT WITHIN REACH, SIDE RAILS UP X 2, BED LOCKED IN LOWEST POSITION. WILL ENDORSE TO NEXT SHIFT NURSE FOR CONTINUING CARE
--- NOTE | 2021-12-10 19:59 | NUR ---
SAMPLE FINISHER OPENING NOTE RECEIVED PATIENT AWAKE IN BED, ALERT/ORIENTED X 4, PT ABLE TO MAKE NEEDS KNOWN. PATIENT STABLE ON RA, NO S/S OF DISTRESS OR SOB NOTED, BREATHING EVEN AND UNLABORED. PATIENT ON EXTERNAL PROTEIN SCIENTIST READING SINUS RHYTHM, HR: 97. PATIENT LYING COMFORTABLY, NO C/O OF PAIN AT THIS TIME. SAFETY MEASURES IN PLACE: CALL LIGHT WITHIN REACH, SIDE RAILS UP X 2, BED LOCKED IN LOWEST POSITION, BED ALARM ON. WILL CONTINUE TO MONITOR PATIENT
--- NOTE | 2021-12-10 22:20 | NUR ---
MS RN NOTE PATIENT STATED SHE HASN'T HAD BOWEL MOVEMENT FOR SEVERAL DAYS, HAD 2 SMALL BOWEL MOVEMENTS THIS AFTERNOON, PT STILL REPORTING CONSTIPATION. MILK OF MAGNESIA GIVEN ORDERED PER PATIENT REQUEST
[2021-12-11] VITALS: BP_SYST 123; BP_SYST 133; BP_DIAS 46; BP_DIAS 64
[2021-12-11 04:00] VITALS: BP 154/89
[2021-12-11] MEDS ORDERED: SORBITOL SOLUTION 70% 30 ML SOLUTION PO ONE (06:00)
--- NOTE | 2021-12-11 06:41 | NUR ---
SEWAGE TREATMENT PLANT OPERATOR CLOSING NOTE PATIENT AWAKE IN BED, ALERT/ORIENTED X 4, PT ABLE TO MAKE NEEDS KNOWN. PATIENT STABLE ON RA, NO S/S OF DISTRESS OR SOB NOTED, BREATHING EVEN AND UNLABORED. PATIENT ON EXTERNAL FASHION INTERN READING SINUS RHYTHM, HR: 92. NO SIGNIFICANT CHANGES THIS SHIFT, PT SLEPT COMFORTABLY THROUGH THE NIGHT. PATIENT NEEDS MET THROUGHOUT SHIFT. SAFETY MEASURES IN PLACE: CALL LIGHT WITHIN REACH, SIDE RAILS UP X 2, BED LOCKED IN LOWEST POSITION, BED ALARM ON. WILL ENDORSE TO DAY SHIFT NURSE FOR CONTINUITY OF CARE
[2021-12-11 07:56] LABS: CALCIUM, SERUM 8.1 mg/dL (8.5-10.1); CREATININE 0.5 mg/dL (0.6-1.3); POTASSIUM 3.6 mmol/L (3.5-5.1)
[2021-12-11 08:00] VITALS: BP 143/65
[2021-12-11] MEDS: ENSURE ENLIVE 237 ML LIQUID (VANILLA) PO SCH ×3 (08:29→18:00)
[2021-12-11] MEDS ORDERED: HYDROXYUREA 500 MG CAPSULE PO SCH (09:00)
[2021-12-11 09:13] LABS: BASOPHILS # (AUTO) 0.1 K/uL (0.0-0.2); BASOPHILS % (AUTO) 1.1 % (0.0-2.0); EOSINOPHILS % (AUTO) 15.4 % (0.0-6.0); HEMATOCRIT 25 % (33-45); LYMPHOCYTES # (AUTO) 0.4 K/uL (0.8-4.8); LYMPHOCYTES % (AUTO) 8.6 % (20.0-44.0); MEAN CORPUSCULAR HGB CONC 32 g/dl (31.0-36.0); MEAN CORPUSCULAR VOLUME 86 fL (82-100); MONOCYTES # (AUTO) 0.2 K/uL (0.1-1.30); MONOCYTES % (AUTO) 4.6 % (2.0-12.0); NEUTROPHILS # (AUTO) 3.5 K/uL (1.8-8.9); NEUTROPHILS % (AUTO) 70.3 % (43.0-81.0); PLATELET COUNT (AUTO) 398 K/uL (150-450); RED BLOOD CELL COUNT(AUTO) 2.87 MIL/uL (4.0-5.2)
[2021-12-11] MEDS: DOCUSATE SODIUM 100 MG CAPSULE PO SCH (10:09)
[2021-12-11] MEDS: LORAZEPAM 1 MG TABLET PO PRN (10:09)
[2021-12-11] MEDS: PANTOPRAZOLE 40 MG TABLET.DR PO SCH (10:09)
[2021-12-11] MEDS: QUETIAPINE FUMARATE 25 MG TABLET PO SCH ×2 (10:09→18:00)
[2021-12-11] MEDS: FERROUS SULFATE (325 MG) 325 MG/TAB TABLET PO SCH (10:09)
[2021-12-11 12:00] VITALS: BP 132/72
[2021-12-11 14:10] LABS: C-REACTIVE PROTEIN 0.8 mg/dL (0.0-0.9)
[2021-12-11 14:28] LABS: THYROID STIMULATING HORMONE 2.573 uIU/mL (0.358-3.74)
[2021-12-11] MEDS ORDERED: PEG 3350/NA SULF,BICARB,CL/KCL 4,000 ML BOTTLE PO ONE (18:00)
[2021-12-11 18:07] VITALS: BP 128/68
--- NOTE | 2021-12-11 19:30 | NUR ---
noc rn opening note received patient in bed, with HOB elevated. a/ox4. no s/s of apparent distress in room air. tele monitor reading st with 103bpm. lt. fa#20g on saline lock. safety in place. call light within reach, oriented and encouraged with the use of call light. will continue with the plan of care for patient.
--- NOTE | 2021-12-11 19:55 | NUR ---
patient signed consents at this time.
[2021-12-11 20:00] VITALS: BP 132/72
--- NOTE | 2021-12-11 20:16 | NUR ---
ELECTRICIAN STATION ASSISTANT CLOSING NOTE PATIENT AWAKE IN BED, ALERT/ORIENTED X 4, ABLE TO MAKE NEEDS KNOWN. PATIENT STABLE ON RA WITH 02 SAT OF 99%, NO S/S OF DISTRESS OR SOB NOTED, BREATHING EVEN AND UNLABORED. PATIENT ON EXTERNAL GROUNDS/MAINTENANCE SPECIALIST READING SINUS RHYTHM WITH HR 92. ALL SAFETY MEASURES IN PLACE: CALL LIGHT WITHIN REACH, SIDE RAILS UP X 2, BED LOCKED IN LOWEST POSITION, BED ALARM ON. WILL ENDORSE TO VECTOR CONTROL ASSISTANT NURSE TO OBTAIN CONSENTS FOR COLONOSCOPY AND FOR PROCEDURE PREP FOR CONTINUITY OF CARE.
[2021-12-12] VITALS: BP_SYST 135; BP_SYST 136; BP_DIAS 67; BP_DIAS 78
--- NOTE | 2021-12-12 07:44 | NUR ---
RN OPENING NOTE PATIENT AWAKE IN BED RESTING. A/O X4, NO PAIN NOTED AT THIS TIME. ON ROOM AIR, NO DISTRESS OR SHORTNESS OF BREATH NOTED. IV ACCESS LFA #20G, INTACT, PATENT AND FLUSHING WELL. PATIENT ON EXTERNAL ACID CUTTER WITH CURRENT READING OF SR AND HR OF 99, NO CARDIAC DISTRESS NOTED. FALL AND SAFETY MEASURES IN PLACE, BED ALARM ON, BED IN LOW AND LOCK POSITION, CALL LIGHT AND TABLE WITHIN EASY REACH, SIDE RAILS UP X2. WILL CONTINUE TO MONITOR.
[2021-12-12 08:00] VITALS: BP 129/74
[2021-12-12] MEDS: ENSURE ENLIVE 237 ML LIQUID (VANILLA) PO SCH ×3 (08:00→17:07)
[2021-12-12] MEDS: SERTRALINE HCL 50 MG TABLET PO SCH (08:19)
[2021-12-12] MEDS: DOCUSATE SODIUM 100 MG CAPSULE PO SCH (08:19)
[2021-12-12] MEDS: PANTOPRAZOLE 40 MG TABLET.DR PO SCH (08:19)
[2021-12-12] MEDS: LORAZEPAM 1 MG TABLET PO PRN (08:20)
[2021-12-12] MEDS: FERROUS SULFATE (325 MG) 325 MG/TAB TABLET PO SCH ×2 (08:20→17:06)
[2021-12-12] MEDS: QUETIAPINE FUMARATE 25 MG TABLET PO SCH ×2 (08:20→17:06)
[2021-12-12 12:00] VITALS: BP 139/76
--- NOTE | 2021-12-12 12:42 | NUR ---
RN NOTE PATIENT'S COLONOSCOPY IS GOING TO BE RESCHEDULE FOR TUESDAY AND PATIENT DIET CAN BE RESUME PER DOCTOR GABRIELLE. COLONOSCOPY WAS RESCHEDULE BECAUSE PATIENT HAVE 1/4 BOTTLE OF GOLYTELY LEFT, PATIENT STILL HAVING BOWEL MOVEMENT BUT, NOT CLEAR YET, DOCTOR KARLI BOO INFORMED, CHARGE NURSE AWARE.
[2021-12-12 16:00] VITALS: BP 122/64
[2021-12-12 17:29] LABS: BASOPHILS # (AUTO) 0.1 K/uL (0.0-0.2); BASOPHILS % (AUTO) 0.9 % (0.0-2.0); EOSINOPHILS % (AUTO) 12.5 % (0.0-6.0); HEMATOCRIT 26 % (33-45); HEMOGLOBIN 8.4 g/dL (11.5-14.8); LYMPHOCYTES # (AUTO) 0.8 K/uL (0.8-4.8); LYMPHOCYTES % (AUTO) 11.8 % (20.0-44.0); MEAN CORPUSCULAR HGB CONC 33 g/dl (31.0-36.0); MEAN CORPUSCULAR VOLUME 87 fL (82-100); MONOCYTES # (AUTO) 0.4 K/uL (0.1-1.30); MONOCYTES % (AUTO) 6.1 % (2.0-12.0); NEUTROPHILS # (AUTO) 4.5 K/uL (1.8-8.9); NEUTROPHILS % (AUTO) 68.7 % (43.0-81.0); PLATELET COUNT (AUTO) 386 K/uL (150-450); RED BLOOD CELL COUNT(AUTO) 2.96 MIL/uL (4.0-5.2); WHITE BLOOD COUNT (AUTO) 6.5 K/uL (4.3-11.0)
--- NOTE | 2021-12-12 19:05 | NUR ---
RN CLOSING NOTE PATIENT AWAKE IN BED RESTING. A/O X4, NO PAIN NOTED AT THIS TIME. ON ROOM AIR, NO DISTRESS OR SHORTNESS OF BREATH NOTED. IV ACCESS LFA #20G, INTACT, PATENT AND FLUSHING WELL. PATIENT ON EXTERNAL CONDEMNATION ENGINEER WITH CURRENT READING OF SR AND HR OF 99, NO CARDIAC DISTRESS NOTED. SCHEDULE MEDICATIONS ADMINISTERED. FALL AND SAFETY MEASURES IN PLACE, BED ALARM ON, BED IN LOW AND LOCK POSITION, CALL LIGHT AND TABLE WITHIN EASY REACH, SIDE RAILS UP X2. WILL ENDORSE TO VESSEL SCRAPPER.
--- NOTE | 2021-12-12 19:55 | NUR ---
RECEIVED PATIENT IN BED, ALERT AND ORIENTED X4, ROOM AIR, NO COMPLAIN OF PAIN, UPGRADED DIET TO CLEAR LIQUID, NO COMPLAIN OF N/V, KEPT SAFE, CALL LIGHT WITHIN REACH.
[2021-12-12 20:00] VITALS: BP 122/67
[2021-12-13] VITALS: BP 132/73
[2021-12-13 04:00] VITALS: BP 137/69
[2021-12-13 05:59] LABS: BASOPHILS # (AUTO) 0.1 K/uL (0.0-0.2); BASOPHILS % (AUTO) 1.4 % (0.0-2.0); EOSINOPHILS % (AUTO) 20.2 % (0.0-6.0); HEMATOCRIT 23 % (33-45); HEMOGLOBIN 7.4 g/dL (11.5-14.8); LYMPHOCYTES # (AUTO) 0.7 K/uL (0.8-4.8); LYMPHOCYTES % (AUTO) 14.1 % (20.0-44.0); MEAN CORPUSCULAR HGB CONC 32 g/dl (31.0-36.0); MEAN CORPUSCULAR VOLUME 86 fL (82-100); MONOCYTES # (AUTO) 0.3 K/uL (0.1-1.30); MONOCYTES % (AUTO) 6.6 % (2.0-12.0); NEUTROPHILS # (AUTO) 2.7 K/uL (1.8-8.9); NEUTROPHILS % (AUTO) 57.7 % (43.0-81.0); PLATELET COUNT (AUTO) 295 K/uL (150-450); RED BLOOD CELL COUNT(AUTO) 2.64 MIL/uL (4.0-5.2); WHITE BLOOD COUNT (AUTO) 4.7 K/uL (4.3-11.0)
[2021-12-13 06:38] LABS: ALBUMIN 1.8 g/dL (3.4-5.0); BILIRUBIN,TOTAL 0.2 mg/dL (0.2-1.0); CALCIUM, SERUM 7.9 mg/dL (8.5-10.1); CREATININE 0.5 mg/dL (0.6-1.3); MAGNESIUM 2.1 mg/dL (1.8-2.4); PHOSPHORUS 3.6 mg/dL (2.5-4.9); TOTAL PROTEIN, SERUM 4.5 g/dL (6.4-8.2)
--- NOTE | 2021-12-13 06:48 | NUR ---
ALERT/ORIENTED X4, ROOM AIR, NO COMPLAIN OF PAIN, GENERALIZED WEAKNESS, VS STABLE, AFEBRILE, COLONOSCOPY RESCHEDULED FOR 12/14/21, DR. ANTHONY, GI. CONSENTS SIGNED. MONITOR H/H.
--- NOTE | 2021-12-13 07:40 | NUR ---
RN OPENING NOTE PATIENT AWAKE IN BED RESTING. A/O X4, NO PAIN NOTED AT THIS TIME. ON ROOM AIR, NO DISTRESS OR SHORTNESS OF BREATH NOTED. IV ACCESS LFA #20G, INTACT, PATENT AND FLUSHING WELL. PATIENT ON EXTERNAL WELT WHEELER WITH CURRENT READING OF SR AND HR OF 98, NO CARDIAC DISTRESS NOTED. FALL AND SAFETY MEASURES IN PLACE, BED ALARM ON, BED IN LOW AND LOCK POSITION, CALL LIGHT AND TABLE WITHIN EASY REACH, SIDE RAILS UP X2. WILL CONTINUE TO MONITOR.
[2021-12-13 08:00] VITALS: BP 141/19
[2021-12-13] MEDS: PANTOPRAZOLE 40 MG TABLET.DR PO SCH (08:19)
[2021-12-13] MEDS: DOCUSATE SODIUM 100 MG CAPSULE PO SCH (08:19)
[2021-12-13] MEDS: ASCORBIC ACID 500 MG TABLET PO SCH (08:19)
[2021-12-13] MEDS: ENSURE ENLIVE 237 ML LIQUID (VANILLA) PO SCH ×3 (08:19→16:53)
[2021-12-13] MEDS: QUETIAPINE FUMARATE 25 MG TABLET PO SCH ×2 (08:19→16:32)
[2021-12-13] MEDS: FERROUS SULFATE (325 MG) 325 MG/TAB TABLET PO SCH ×2 (08:19→16:33)
[2021-12-13] MEDS: LORAZEPAM 1 MG TABLET PO PRN (08:19)
[2021-12-13] MEDS: SERTRALINE HCL 50 MG TABLET PO SCH (08:19)
[2021-12-13] MEDS ORDERED: POTASSIUM CHLORIDE 20 MEQ TAB.PRT.SR PO SCH (10:30)
[2021-12-13 12:00] VITALS: BP 125/71
--- NOTE | 2021-12-13 17:00 | NUR ---
RN NOTE DOCTOR GABRIELLE WAS CONTACTED TO CONFIRM IF PATIENT SHOULD BE PREP FOR COLONOSCOPY TOMORROW BUT NO RESPONSE. DOCTOR KARLI BOO WAS INFORMED AND SUGGESTED TO CONTACT DOCTOR ORTIZ SINCE HE IS THE ONE SCHEDULE FOR TOMORROW, SPOKE WITH DR. ORTIZ AND HE STATED " DO NOT PREP-PATIENT YET, WOULD LIKE TO SEE WHAT'S GOING ON FIRST. DOCTOR KARLI BOO AND CHARGE NURSE AWARE.
--- NOTE | 2021-12-13 19:05 | NUR ---
RN CLOSING NOTE PATIENT AWAKE IN BED RESTING. A/O X4, NO PAIN NOTED AT THIS TIME. ON ROOM AIR, NO DISTRESS OR SHORTNESS OF BREATH NOTED. IV ACCESS LFA #20G, INTACT, PATENT AND FLUSHING WELL. PATIENT ON EXTERNAL WOOD FENCE ERECTOR WITH CURRENT READING OF SR AND HR OF 85, NO CARDIAC DISTRESS NOTED. SCHEDULE MEDICATIONS ADMINISTERED. FALL AND SAFETY MEASURES IN PLACE, BED ALARM ON, BED IN LOW AND LOCK POSITION, CALL LIGHT AND TABLE WITHIN EASY REACH, SIDE RAILS UP X2. WILL ENDORSE TO MEDICAL OFFICE TECHNICIAN.
--- NOTE | 2021-12-13 19:25 | NUR ---
ACCREDITATION MANAGER OPENING NOTE RECEIVED PATIENT IN BED; AWAKE, ALERT AND ORIENTED X4. BREATHING EQUAL AND UNLABORED. ON ROOM AIR; TOLERATING WELL. NOT IN ANY FORM OF RESPIRATORY DISTRESS. ON TELEMETRY MONITORING WITH READING OF SINUS RHYTHM HR-85 BPM. DENIES ANY PAIN OR DISCOMFORT AT THIS TIME. ABLE TO MAKE NEEDS KNOWN. WITH IV ACCESS ON LEFT FOREARM 20g: PATENT, INTACT AND SALINE LOCKED. . SAFETY MEASURES IMPLEMENTED: CALL LIGHT AND TABLE WITHIN REACH, SIDE RAILS UP X2, BED IN LOWEST LOCKED POSITION. WILL CONTINUE PLAN OF CARE.
--- NOTE | 2021-12-13 19:40 | NUR ---
RN OPENING NOTE RECEIVED PATIENT IN BED; AWAKE, ALERT AND ORIENTED X 1. ON O2 INHALATION @ 4LPM VIA NASAL CANNULA; TOLERATING WELL. NOT IN ANY FORM OF RESPIRATORY DISTRESS. NO S/S OF PAIN OR DISCOMFORT NOTED AT THIS TIME. WITH IV ACCESS ON LEFT FOREARM 22g: PATENT AND INTACT RUNNING WITH POTASSIUM CHLORIDE 40 MEQ IN D5NS REGULATED @ 100 ML/HR; FLUSHES WELL. ON TELE MONITOR WITH CURRENT READING OF SINUS RHYTHM HR-62 BPM. WITH THAPA CATHETER IN PLACE DRAINING WELL TO YELLOW URINE OUTPUT. NEEDS ANTICIPATED. SAFETY MEASURES IMPLEMENTED: HEAD OF BED ELEVATED, CALL LIGHT AND TABLE WITHIN REACH, SIDE RAILS UP X 3, BED IN LOWEST LOCKED POSITION. WILL CONTINUE PLAN OF CARE.
[2021-12-13 20:00] VITALS: BP 133/79
[2021-12-14] VITALS: BP 134/72
[2021-12-14 04:00] VITALS: BP 131/67
[2021-12-14 04:30] VITALS: BP 131/67
[2021-12-14 06:27] LABS: BASOPHILS # (AUTO) 0.1 K/uL (0.0-0.2); BASOPHILS % (AUTO) 1.7 % (0.0-2.0); EOSINOPHILS % (AUTO) 20.4 % (0.0-6.0); HEMATOCRIT 29 % (33-45); HEMOGLOBIN 9.3 g/dL (11.5-14.8); LYMPHOCYTES # (AUTO) 1.3 K/uL (0.8-4.8); MEAN CORPUSCULAR HGB CONC 33 g/dl (31.0-36.0); MEAN CORPUSCULAR VOLUME 88 fL (82-100); MONOCYTES # (AUTO) 0.3 K/uL (0.1-1.30); MONOCYTES % (AUTO) 4.8 % (2.0-12.0); NEUTROPHILS # (AUTO) 3.4 K/uL (1.8-8.9); NEUTROPHILS % (AUTO) 53.1 % (43.0-81.0); PLATELET COUNT (AUTO) 427 K/uL (150-450); RED BLOOD CELL COUNT(AUTO) 3.25 MIL/uL (4.0-5.2); WHITE BLOOD COUNT (AUTO) 6.3 K/uL (4.3-11.0)
[2021-12-14 06:40] LABS: CALCIUM, SERUM 8.4 mg/dL (8.5-10.1); CREATININE 0.5 mg/dL (0.6-1.3); POTASSIUM 3.5 mmol/L (3.5-5.1)
--- NOTE | 2021-12-14 06:53 | NUR ---
PEN TENDER CLOSING NOTE PATIENT IN BED; AWAKE, A/O X4. STABLE ON ROOM AIR. RESPIRATION EVEN AND NONLABORED. IN NO ACUTE DISTRESS. ON TELE MONITOR WITH READING OF SINUS RHYTHM HR-85 BPM. NO C/O ANY PAIN OR DISCOMFORT AT THIS TIME. WITH IV ACCESS ON LEFT FOREARM 20g: PATENT, INTACT AND SALINE LOCKED. SAFETY MEASURES IN PLACE: CALL LIGHT AND TABLE WITHIN REACH, SIDE RAILS UP X2, BED IN LOWEST LOCKED POSITION. ENDORSED TO MORNING SHIFT FOR ERIS.
--- NOTE | 2021-12-14 07:20 | NUR ---
SET OFF BLOCKER OPENING NOTE Pt received in bed, awake, A/O x4, on room Air. No signs of SOB or labored breathing. Denies pain and no visible signs of discomfort. Telemetry shows SR, 87 bpm. IV access LFA 20g intact, patent, on SL. Independent and ambulatory. Safety measures in place. Call light within reach. Side rails up x2. Bed locked, in lowest position. Will continue to monitor.
[2021-12-14 08:00] VITALS: BP 138/62
[2021-12-14] MEDS: ENSURE ENLIVE 237 ML LIQUID (VANILLA) PO SCH ×2 (08:06→12:13)
[2021-12-14] MEDS: ASCORBIC ACID 500 MG TABLET PO SCH (08:30)
[2021-12-14] MEDS: DOCUSATE SODIUM 100 MG CAPSULE PO SCH (08:31)
[2021-12-14] MEDS: FERROUS SULFATE (325 MG) 325 MG/TAB TABLET PO SCH ×2 (08:31→16:20)
[2021-12-14] MEDS: SERTRALINE HCL 50 MG TABLET PO SCH (08:32)
[2021-12-14] MEDS: QUETIAPINE FUMARATE 25 MG TABLET PO SCH ×2 (08:42→16:20)
[2021-12-14] MEDS: LORAZEPAM 1 MG TABLET PO PRN (08:42)
[2021-12-14] MEDS: PANTOPRAZOLE 40 MG TABLET.DR PO SCH (08:42)
--- NOTE | 2021-12-14 08:43 | NUR ---
RN NOTES PT VERBALIZED THAT SHE'S ANXIOUS AND REQUESTED FOR ATIVAN. PRN ATIVAN 1MG PO ADMINISTERED AT 0842. WILL CONTINUE TO MONITOR PT.
[2021-12-14 16:00] VITALS: BP 135/67
[2021-12-14] MEDS: ENSURE CLEAR 237 ML LIQUID (MIX BERRY) PO SCH (17:27)
--- NOTE | 2021-12-14 18:46 | NUR ---
MS RN CLOSING NOTE PT IN BED, AWAKE, A/O X4. ABLE TO MAKE NEEDS TO KNOWN. STABLE ON RA. NO SIGNS OF SOB OR LABORED BREATHING. PT DENIES PAIN AND SHOWS NO VISIBLE SIGNS OF DISCOMFORT. IV ACCESS LFA 20G INTACT, PATENT, ON SL. OTHER MEDICATIONS ADMINISTERED PRESCRIBED. ALL NEEDS AND CARE PROVIDED WELL. INDEPENDENT AND AMBULATORY. SAFETY MEASURES IN PLACE. CALL LIGHT WITHIN REACH. SIDE RAILS UP X2. BED LOCKED, IN LOWEST POSITION. WILL ENDORSE TO PARATRANSIT OPERATOR FOR ERIS.
[2021-12-14 20:00] VITALS: BP 129/74
--- NOTE | 2021-12-14 21:02 | NUR ---
MS/TELE/RN DURING INITIAL SHIFT ROUNDS, PATIENT WAS IN BED AWAKE, ALERT, ORIENTED, NO C/O PAIN, NO SIGNS OF DISTRESS NOTE, CALL LIGHT IN REACH, FALL PRECAUTIONS PER PROTOCOL IMPLEMENTED, WILL MONITOR.
--- NOTE | 2021-12-15 02:10 | NUR ---
MS/TELE/RN PATIENT IS SLEEPING AT THIS TIME, APPEARS COMFORTABLE, NO SIGNS OF DISTRESS NOTED, CALL LIGHT IN REACH. WILL CONTINUE TO MONITOR.
[2021-12-15 06:12] LABS: BASOPHILS # (AUTO) 0.1 K/uL (0.0-0.2); BASOPHILS % (AUTO) 1.4 % (0.0-2.0); EOSINOPHILS % (AUTO) 23.5 % (0.0-6.0); HEMATOCRIT 25 % (33-45); LYMPHOCYTES # (AUTO) 0.6 K/uL (0.8-4.8); LYMPHOCYTES % (AUTO) 12.6 % (20.0-44.0); MEAN CORPUSCULAR HGB CONC 33 g/dl (31.0-36.0); MEAN CORPUSCULAR VOLUME 87 fL (82-100); MONOCYTES # (AUTO) 0.3 K/uL (0.1-1.30); MONOCYTES % (AUTO) 6.1 % (2.0-12.0); NEUTROPHILS # (AUTO) 2.6 K/uL (1.8-8.9); NEUTROPHILS % (AUTO) 56.4 % (43.0-81.0); PLATELET COUNT (AUTO) 316 K/uL (150-450); RED BLOOD CELL COUNT(AUTO) 2.85 MIL/uL (4.0-5.2); WHITE BLOOD COUNT (AUTO) 4.7 K/uL (4.3-11.0)
[2021-12-15 06:17] LABS: ALBUMIN 1.9 g/dL (3.4-5.0); BILIRUBIN,TOTAL 0.2 mg/dL (0.2-1.0); CREATININE 0.5 mg/dL (0.6-1.3); MAGNESIUM 2.1 mg/dL (1.8-2.4); PHOSPHORUS 3.7 mg/dL (2.5-4.9); POTASSIUM 3.1 mmol/L (3.5-5.1); TOTAL PROTEIN, SERUM 4.8 g/dL (6.4-8.2)
--- NOTE | 2021-12-15 06:20 | NUR ---
MS/TELE/RN PATIENT IS AWAKE, NO C/O PAIN, NO DISTRESS NOTED, CALL LIGHT IN REACH, ALL NEEDS ATTENDED AT THIS TIME, WILL CONTINUE TO MONITOR.
--- NOTE | 2021-12-15 07:30 | NUR ---
MS RN OPENING NOTE RECEIVED PATIENT IN BED, AWAKE, A/O X4. ABLE TO MAKE NEEDS KNOWN. ON RA TOLERATING WELL. NO SOB NOTED. NO PAIN NOTED . IV ACCESS LFA 20G INTACT, PATENT SL. ALL NEEDS ATTENDED. AMBULATORY. ALL SAFETY MEASURES IN PLACE. CALL LIGHT WITHIN REACH. SIDE RAILS UP X2. BED LOCKED, IN LOWEST POSITION. WILL CONTINUE TO MONITOR.
[2021-12-15] MEDS: PANTOPRAZOLE 40 MG TABLET.DR PO SCH (07:39)
[2021-12-15 08:00] VITALS: BP 146/76
[2021-12-15] MEDS: DOCUSATE SODIUM 100 MG CAPSULE PO SCH (08:11)
[2021-12-15] MEDS: ASCORBIC ACID 500 MG TABLET PO SCH (08:11)
[2021-12-15] MEDS: FERROUS SULFATE (325 MG) 325 MG/TAB TABLET PO SCH ×2 (08:11→16:47)
[2021-12-15] MEDS: QUETIAPINE FUMARATE 25 MG TABLET PO SCH ×2 (08:11→16:44)
[2021-12-15] MEDS: ENSURE CLEAR 237 ML LIQUID (MIX BERRY) PO SCH ×3 (08:11→16:47)
[2021-12-15] MEDS: SERTRALINE HCL 50 MG TABLET PO SCH (08:12)
[2021-12-15] MEDS: LORAZEPAM 1 MG TABLET PO PRN (09:09)
[2021-12-15] MEDS ORDERED: POTASSIUM CHLORIDE 20 MEQ POWDER PACKET PO ONE (10:00)
[2021-12-15 11:56] LABS: BAND % (MANUAL) 1 % (0.0-5.0); EOSINOPHILS % (MANUAL) 23 % (0-4); LYMPHOCYTES % (MANUAL) 10 % (16-48); MONOCYTES % (MANUAL) 10 % (0-11.0); NEUTROPHILS % (MANUAL) 56 (42-76)
[2021-12-15] MEDS ORDERED: PEG 3350/NA SULF,BICARB,CL/KCL 4,000 ML BOTTLE PO ONE (12:00)
[2021-12-15 16:00] VITALS: BP 137/76
--- NOTE | 2021-12-15 16:47 | NUR ---
rn notes held 1700 [address] and shaun for having colonoscopy today at 1730 pm.
--- NOTE | 2021-12-15 18:41 | NUR ---
RN NOTES PATIENT HAD HER LUNCH WHICH WAS BROTH AND JELLO. THE GOLYTELY ORDER WAS STARTED AT 1227. PATIENT WAS TRYING HER BEST TO DRINK THE GOLYTELY. SHE COULD NOT DRINK IT FAST. THE BOWEL MOVEMENTS WERE NOT CLEAR YET. PATIENT WAS KEEP DRINKING THE GOLYTELY TILL 1730. THE BOWEL WAS NOT CLEAR YET. PATIENT COULD NOT FINISH THE PREPARATION LIQUID. SHE DRANK 70% OF THE PREP FLUID.
--- NOTE | 2021-12-15 18:45 | NUR ---
MS RN CLOSING NOTE PATIENT IN BED, AWAKE, A/O X4. ABLE TO MAKE NEEDS KNOWN. ON RA TOLERATING WELL. NO SOB NOTED. NO PAIN NOTED . IV ACCESS LFA 20G INTACT, PATENT SL. ALL NEEDS ATTENDED. DUE MEDS GIVEN. AMBULATORY. THE COLONOSCOPY POSTPONED FOR FURTHER NOTICE. KEEP PATIENT NPO TILL COLONOSCOPY.ALL SAFETY MEASURES IN PLACE. CALL LIGHT WITHIN REACH. SIDE RAILS UP X2. BED LOCKED, IN LOWEST POSITION. WILL ENDORSE FOR ERIS..
--- NOTE | 2021-12-15 19:56 | NUR ---
MS/TELE/RN RECEIVE PATIENT IN ROOM AWAKE, ALERT, ORIENTED, NO C/O PAIN, NO DISTRESS NOTED, ENCOURAGED TO TAKE THE GOLYTELY UNTIL HER STOOL IS CLEAR, PLAN OF CARE DISCUSSED, VERBALISED UNDERSTANDING, WILL MONITOR.
[2021-12-15 20:00] VITALS: BP 127/70
--- NOTE | 2021-12-16 02:48 | NUR ---
MS/TELE/RN PATIENT IS SLEEPING, APPEARS COMFORTABLE, NO SIGNS OF DISTRESS NOTED, CALL LIGHT IN REACH, WILL CONTINUE TO MONITOR.
--- NOTE | 2021-12-16 05:54 | NUR ---
MS/TELE/RN PATIENT IS AWAKE, NO C/O PAIN, NO DISTRESS NOTED, CALL LIGHT IN REACH, ALL NEEDS ATTENDED AT THIS TIME, WILL CONTINUE TO MONITOR.
[2021-12-16 05:56] LABS: BASOPHILS # (AUTO) 0.1 K/uL (0.0-0.2); BASOPHILS % (AUTO) 1.9 % (0.0-2.0); EOSINOPHILS % (AUTO) 21.4 % (0.0-6.0); HEMATOCRIT 25 % (33-45); HEMOGLOBIN 8.1 g/dL (11.5-14.8); LYMPHOCYTES # (AUTO) 0.6 K/uL (0.8-4.8); LYMPHOCYTES % (AUTO) 12.5 % (20.0-44.0); MEAN CORPUSCULAR HGB CONC 33 g/dl (31.0-36.0); MEAN CORPUSCULAR VOLUME 86 fL (82-100); MONOCYTES # (AUTO) 0.3 K/uL (0.1-1.30); MONOCYTES % (AUTO) 5.7 % (2.0-12.0); NEUTROPHILS # (AUTO) 2.6 K/uL (1.8-8.9); NEUTROPHILS % (AUTO) 58.5 % (43.0-81.0); PLATELET COUNT (AUTO) 309 K/uL (150-450); RED BLOOD CELL COUNT(AUTO) 2.84 MIL/uL (4.0-5.2); WHITE BLOOD COUNT (AUTO) 4.5 K/uL (4.3-11.0)
[2021-12-16 06:10] LABS: CALCIUM, SERUM 7.7 mg/dL (8.5-10.1); CREATININE 0.6 mg/dL (0.6-1.3); PHOSPHORUS 3.8 mg/dL (2.5-4.9)
--- NOTE | 2021-12-16 07:32 | NUR ---
MS RN OPENING NOTE RECEIVED PATIENT IN BED, AWAKE, A/O X4. ABLE TO MAKE NEEDS KNOWN. ON RA TOLERATING WELL. NO SOB NOTED. NO PAIN NOTED . IV ACCESS LFA 20G INTACT, PATENT SL. ALL NEEDS ATTENDED. NPO, AMBULATORY. ALL SAFETY MEASURES IN PLACE. CALL LIGHT WITHIN REACH. SIDE RAILS UP X2. BED LOCKED, IN LOWEST POSITION. WILL CONTINUE TO MONITOR.
[2021-12-16] MEDS: PANTOPRAZOLE 40 MG TABLET.DR PO SCH (07:43)
[2021-12-16 08:00] VITALS: BP 118/56
[2021-12-16] MEDS: ENSURE CLEAR 237 ML LIQUID (MIX BERRY) PO SCH ×3 (08:00→17:38)
[2021-12-16] MEDS: SERTRALINE HCL 50 MG TABLET PO SCH (08:44)
[2021-12-16] MEDS: ASCORBIC ACID 500 MG TABLET PO SCH (08:44)
[2021-12-16] MEDS: QUETIAPINE FUMARATE 25 MG TABLET PO SCH ×2 (08:45→16:15)
[2021-12-16] MEDS: DOCUSATE SODIUM 100 MG CAPSULE PO SCH (09:00)
[2021-12-16] MEDS: FERROUS SULFATE (325 MG) 325 MG/TAB TABLET PO SCH ×2 (09:00→16:39)
[2021-12-16] MEDS: POTASSIUM CL. PREMIX PERIPHER. 50 ML IV SCH ×6 (10:01→16:35)
[2021-12-16] MEDS: LORAZEPAM 1 MG TABLET PO PRN (10:12)
--- NOTE | 2021-12-16 14:41 | NUR ---
RN NOTES HELD [facility] AND [facility] FOR 0900 AM . PATIENT NPO FOR POSSIBLE COLONOSCOPY.
--- NOTE | 2021-12-16 14:43 | NUR ---
RN NOTES HELD GLUCERNA AT 1200 PM FOR POSSIBLE COLONOSCOPY TODAY.
[2021-12-16 15:31] LABS: BAND % (MANUAL) 3 % (0.0-5.0); BASOPHILS % (MANUAL) 0 % (0.0-2.0); EOSINOPHILS % (MANUAL) 16 % (0-4); LYMPHOCYTES % (MANUAL) 14 % (16-48); MONOCYTES % (MANUAL) 6 % (0-11.0); NEUTROPHILS % (MANUAL) 61 (42-76)
[2021-12-16 16:00] VITALS: BP 126/67
--- NOTE | 2021-12-16 16:39 | NUR ---
RN NOTES HELD [facility] FOR 1700. PATIENT WILL HAVE SURGERY TOMORROW MORNING.
--- NOTE | 2021-12-16 19:22 | NUR ---
MS RN CLOSING NOTE PATIENT AWAKE IN BED, A/O X4. ABLE TO MAKE NEEDS KNOWN. ON RA TOLERATING WELL. NO SOB NOTED. NO PAIN NOTED . IV ACCESS LFA 20G INTACT, PATENT SL. ALL DUE ,EDS GIVEN ORDERED.ALL NEEDS ATTENDED. NPO,STARTING TONIGHT TO HAVE COLONOSCOPY TOMORROW MORNING AT 0800 AM. AMBULATORY. ALL SAFETY MEASURES IN PLACE.ALL DUE MEDS GIVEN ORDERED. TOOK COVID SAMPLE TO LAB AT 1615. CALL LIGHT WITHIN REACH. SIDE RAILS UP X2. BED LOCKED, IN LOWEST POSITION. WILL ENDORSE FOR ERIS.
--- NOTE | 2021-12-16 19:30 | NUR ---
MS RN OPENING NOTE RECEIVED PT AWAKE IN BED. A/O X4 AND ABLE TO MAKE NEEDS KNOWN. PT STABLE ON ROOM AIR. NO SOB OR S/S OF RESPIRATORY DISTRESS. BREATHING EVEN AND UNLABORED. IV ACCESS LFA 20G SL, INTACT AND PATENT. SAFETY PRECAUTIONS IN PLACE. BED IN LOWEST LOCKED POSITION, HOB ELEVATED, SIDE RAILS UP X2, AND CALL LIGHT AND TABLE WITHIN REACH. ALL NEEDS MET AT THIS TIME.
[2021-12-16 20:00] VITALS: BP 130/70
[2021-12-17] VITALS (8 sets, daily range): BP systolic 122–144; BP diastolic 65–84
[2021-12-17 06:46] LABS: BASOPHILS # (AUTO) 0.1 K/uL (0.0-0.2); BASOPHILS % (AUTO) 1.5 % (0.0-2.0); EOSINOPHILS % (AUTO) 17.3 % (0.0-6.0); HEMATOCRIT 26 % (33-45); HEMOGLOBIN 8.5 g/dL (11.5-14.8); LYMPHOCYTES # (AUTO) 0.6 K/uL (0.8-4.8); LYMPHOCYTES % (AUTO) 14.7 % (20.0-44.0); MEAN CORPUSCULAR HGB CONC 33 g/dl (31.0-36.0); MEAN CORPUSCULAR VOLUME 87 fL (82-100); MONOCYTES # (AUTO) 0.2 K/uL (0.1-1.30); MONOCYTES % (AUTO) 5.6 % (2.0-12.0); NEUTROPHILS # (AUTO) 2.7 K/uL (1.8-8.9); NEUTROPHILS % (AUTO) 60.9 % (43.0-81.0); PLATELET COUNT (AUTO) 344 K/uL (150-450); RED BLOOD CELL COUNT(AUTO) 2.96 MIL/uL (4.0-5.2); WHITE BLOOD COUNT (AUTO) 4.4 K/uL (4.3-11.0)
--- NOTE | 2021-12-17 06:46 | NUR ---
MS RN CLOSING NOTE PT AWAKE IN BED. A/O X4 AND ABLE TO MAKE NEEDS KNOWN. PT STABLE ON ROOM AIR. NO SOB OR S/S OF RESPIRATORY DISTRESS. BREATHING EVEN AND UNLABORED. IV ACCESS LFA 20G SL, INTACT AND PATENT. KEPT NPO AFTER MIDNIGHT. ALL DUE MEDS GIVEN ORDERED. SAFETY PRECAUTIONS IN PLACE AT ALL TIMES. BED IN LOWEST LOCKED POSITION, HOB ELEVATED, SIDE RAILS UP X2, AND CALL LIGHT AND TABLE WITHIN REACH. ALL NEEDS MET AT THIS TIME AND WILL ENDORSE TO ONCOMING NURSE FOR ERIS.
--- NOTE | 2021-12-17 07:00 | NUR ---
MS RN OPENING NOTES: RECEIVED PT IN BED, ASLEEP, EASILY AROUSED WITH STIMULI. A/O X 4 AND ABLE TO VERBALIZED NEEDS. NO SOB OR CARDIAC DISTRESS NOTED. MAINTAINED NPO. WITH LFA GAUGE 20,PATENT AND INTACT SALINE LOCKED. SAFETY MEASURES MAINTAINED:BED LOCKED AND IN LOWEST POSITION, SIDE RAILS UP X 2. CALL LIGHT IN EASY REACH FOR HELP. KEPT RESTED AND COMFORTABLE. SCHEDULED FOR COLONOSCOPY TODAY AND WAITING FOR SLAT BASKET MAKER HELPER.
[2021-12-17] MEDS: PANTOPRAZOLE 40 MG TABLET.DR PO SCH (07:30)
--- NOTE | 2021-12-17 07:30 | NUR ---
RN NOTES: PATIENT WAS PICKED UP GOING TO OR FOR COLONOSCOPY, MAINTAINED NPO. PT STABLE WHEN LEFT THE UNIT.
[2021-12-17] MEDS: ENSURE CLEAR 237 ML LIQUID (MIX BERRY) PO SCH ×3 (08:00→16:47)
[2021-12-17 08:03] LABS: CALCIUM, SERUM 7.9 mg/dL (8.5-10.1); CREATININE 0.6 mg/dL (0.6-1.3); PHOSPHORUS 3.3 mg/dL (2.5-4.9); POTASSIUM 3.3 mmol/L (3.5-5.1)
[2021-12-17] MEDS: DOCUSATE SODIUM 100 MG CAPSULE PO SCH (09:00)
--- NOTE | 2021-12-17 10:20 | NUR ---
RN NOTES: PATIENT WENT BACK FROM OR, S/P COLONOSCOPY. RECEIVED PT AWAKE, ALERT AND ORIENTED X 4 AND ABLE TO VERBALIZED NEEDS, DENIES PAIN AT THIS TIME.WILL MONITOR PT ACCORDINGLY.
[2021-12-17] MEDS: ASCORBIC ACID 500 MG TABLET PO SCH (10:28)
[2021-12-17] MEDS: SERTRALINE HCL 50 MG TABLET PO SCH (10:28)
[2021-12-17] MEDS: FERROUS SULFATE (325 MG) 325 MG/TAB TABLET PO SCH ×2 (10:28→16:47)
[2021-12-17] MEDS: QUETIAPINE FUMARATE 25 MG TABLET PO SCH ×2 (10:28→16:47)
[2021-12-17] MEDS: POTASSIUM CL. PREMIX PERIPHER. 50 ML IV SCH ×2 (10:28→11:28)
[2021-12-17] MEDS: LORAZEPAM 1 MG TABLET PO PRN (10:31)
--- NOTE | 2021-12-17 18:44 | NUR ---
MS RN CLOSING NOTES: PATIENT IN BED,AWAKE, ALERT AND ORIENTED X 4 AND ABLE TO VERBALIZED NEEDS. NO SOB OR CARDIAC DISTRESS NOTED PATIENT IS PALE IN APPEARANCE. IV ACCESS ON LFA G20 PATENT, INTACT AND SL. DENIES PAIN AT THIS TIME. SAFETY MEASURES MAINTAINED: BED LOCKED AND IN LOWEST POSITION, SIDE RAILS UP X 2. CALL LIGHT AND BED SIDE TABLE IN EASY REACH. ENDORSED TO NOC SHIFT FOR ERIS.
--- NOTE | 2021-12-18 00:42 | NUR ---
CARE TRANSFERRED TO ALBERTO VARGAS AT THIS TIME
--- NOTE | 2021-12-18 01:27 | NUR ---
received pt in bed patient asleep resp even and unlabored skin warm and dry call light within her reach
--- NOTE | 2021-12-18 04:25 | NUR ---
CLOSING NOTES: ALERT AND ORIENTATED X4 AMBULATES TO THE BATHROOM WEARING A PERIPAD "STATES RECTAL BLD SMALL AMOUNT" LATEST hBG 8.5 12/17 SKIN WARM AND DRY AWAKENS EASILY WHEN NAME SPOKEN
[2021-12-18 06:53] LABS: BASOPHILS # (AUTO) 0.1 K/uL (0.0-0.2); BASOPHILS % (AUTO) 1.8 % (0.0-2.0); EOSINOPHILS % (AUTO) 18.9 % (0.0-6.0); HEMATOCRIT 25 % (33-45); HEMOGLOBIN 8.2 g/dL (11.5-14.8); LYMPHOCYTES # (AUTO) 0.6 K/uL (0.8-4.8); LYMPHOCYTES % (AUTO) 11.7 % (20.0-44.0); MEAN CORPUSCULAR HGB CONC 33 g/dl (31.0-36.0); MEAN CORPUSCULAR VOLUME 88 fL (82-100); MONOCYTES # (AUTO) 0.2 K/uL (0.1-1.30); MONOCYTES % (AUTO) 4.4 % (2.0-12.0); NEUTROPHILS # (AUTO) 3.2 K/uL (1.8-8.9); NEUTROPHILS % (AUTO) 63.2 % (43.0-81.0); PLATELET COUNT (AUTO) 349 K/uL (150-450); RED BLOOD CELL COUNT(AUTO) 2.87 MIL/uL (4.0-5.2); WHITE BLOOD COUNT (AUTO) 5.1 K/uL (4.3-11.0)
[2021-12-18 07:00] VITALS: BP 155/81
--- NOTE | 2021-12-18 07:04 | NUR ---
MS RN OPENING NOTES RECEIVED PATIENT AWAKE IN BED RESTING, A/Ox4. ON ROOM AIR NO S/S OF PAIN OR DISCOMFORT. IV ACCESS R AC#20G SL. INTACT AND PATIENT NO S/S OF INFILTRATION. PATIENT IS AMBULATORY, HAS BATHROOM PRIVILEGES. SKIN INTACT. SAFETY MEASURES IN PLACE: BED LOCKED AND IN LOWEST POSITION, SIDE RAILS UP x2, CALL LIGHT WITHIN REACH, HOB ELEVATED. WILL CONTINUE TO MONITOR.
[2021-12-18 07:06] LABS: CALCIUM, SERUM 7.9 mg/dL (8.5-10.1); CREATININE 0.6 mg/dL (0.6-1.3); MAGNESIUM 1.8 mg/dL (1.8-2.4); POTASSIUM 3.4 mmol/L (3.5-5.1)
[2021-12-18] MEDS: PANTOPRAZOLE 40 MG TABLET.DR PO SCH (08:21)
[2021-12-18] MEDS: FERROUS SULFATE (325 MG) 325 MG/TAB TABLET PO SCH ×2 (08:21→16:20)
[2021-12-18] MEDS: DOCUSATE SODIUM 100 MG CAPSULE PO SCH (08:21)
[2021-12-18] MEDS: QUETIAPINE FUMARATE 25 MG TABLET PO SCH ×2 (08:21→16:20)
[2021-12-18] MEDS: ASCORBIC ACID 500 MG TABLET PO SCH (08:21)
[2021-12-18] MEDS: SERTRALINE HCL 50 MG TABLET PO SCH (08:22)
[2021-12-18] MEDS: ENSURE CLEAR 237 ML LIQUID (MIX BERRY) PO SCH ×3 (08:22→17:08)
[2021-12-18] MEDS: LORAZEPAM 1 MG TABLET PO PRN (08:22)
--- NOTE | 2021-12-18 09:00 | NUR ---
RN NOTES PATIENT REQUESTED TO HAVE ATIVAN WITH HER MORNING MEDICATION. PRN ATIVAN ADMINISTERED WILL CONTINUE TO MONITOR.
[2021-12-18] MEDS ORDERED: POTASSIUM CHLORIDE 20 MEQ POWDER PACKET PO ONE (10:00)
[2021-12-18 16:00] VITALS: BP 135/73
--- NOTE | 2021-12-18 18:42 | NUR ---
MS RN CLOSING NOTES RECEIVED PATIENT AWAKE IN BED RESTING, A/Ox4. ON ROOM AIR NO S/S OF PAIN OR DISCOMFORT. IV ACCESS R AC#20G SL. INTACT AND PATIENT NO S/S OF INFILTRATION. PATIENT IS AMBULATORY, HAS BATHROOM PRIVILEGES. SKIN INTACT. ALL PRESCRIBED MEDICATION ADMINISTERED. SAFETY MEASURES MAINTAINED: BED LOCKED AND IN LOWEST POSITION, SIDE RAILS UP x2, CALL LIGHT WITHIN REACH, HOB ELEVATED. WILL ENDORSE TO NEXT SHIFT ANY ERIS.
[2021-12-18 20:00] VITALS: BP 116/64
--- NOTE | 2021-12-18 20:09 | NUR ---
MS RN OPENING NOTES RECEIVED PATIENT AWAKE IN BED RESTING, A/Ox4. ON ROOM AIR NO S/S OF PAIN OR DISCOMFORT. IV ACCESS R AC#20G SL. INTACT AND PATIENT NO S/S OF INFILTRATION. PATIENT IS AMBULATORY, HAS BATHROOM PRIVILEGES. SKIN INTACT. SAFETY MEASURES MAINTAINED: BED LOCKED AND IN LOWEST POSITION, SIDE RAILS UP x2, CALL LIGHT WITHIN REACH, HOB ELEVATED.
--- NOTE | 2021-12-19 07:11 | NUR ---
MS RN CLOSING NOTES RECEIVED PATIENT AWAKE IN BED RESTING, A/Ox4. ON ROOM AIR NO S/S OF PAIN OR DISCOMFORT. IV ACCESS R AC#20G SL. INTACT AND PATIENT NO S/S OF INFILTRATION. PATIENT IS AMBULATORY, HAS BATHROOM PRIVILEGES. SKIN INTACT. SAFETY MEASURES MAINTAINED: BED LOCKED AND IN LOWEST POSITION, SIDE RAILS UP x2, CALL LIGHT WITHIN REACH, HOB ELEVATED. WILL ENDORSE CARE TO DAY SHIFT NURSE.
--- NOTE | 2021-12-19 07:29 | NUR ---
MS RN OPENING NOTE RECEIVED PT AWAKE AND RESTING IN BED. PT A/OX4, ABLE TO MAKE NEEDS KNOWN. ON ROOM AIR, TOLERATING WELL. NO SOB NOTED. NOT IN ANY SIGN OF RESPIRATORY DISTRESS. IV ACCESS IN LFA G#20 INTACT AND PATENT. SAFETY MEASURES IN PLACE: BED IN LOWEST AND LOCKED POSITION, SIDE RAILS UPX2, AND CALL LIGHT WITHIN EASY REACH. WILL CONTINUE TO MONITOR PT.
[2021-12-19 08:00] VITALS: BP 137/78
[2021-12-19] MEDS: PANTOPRAZOLE 40 MG TABLET.DR PO SCH (08:05)
[2021-12-19] MEDS: ENSURE CLEAR 237 ML LIQUID (MIX BERRY) PO SCH (08:05)
[2021-12-19] MEDS: ASCORBIC ACID 500 MG TABLET PO SCH (08:20)
[2021-12-19] MEDS: FERROUS SULFATE (325 MG) 325 MG/TAB TABLET PO SCH ×2 (08:20→16:05)
[2021-12-19] MEDS: DOCUSATE SODIUM 100 MG CAPSULE PO SCH (08:20)
[2021-12-19] MEDS: QUETIAPINE FUMARATE 25 MG TABLET PO SCH ×2 (08:20→16:05)
[2021-12-19] MEDS: SERTRALINE HCL 50 MG TABLET PO SCH (08:20)
[2021-12-19] MEDS: LORAZEPAM 1 MG TABLET PO PRN (09:40)
--- NOTE | 2021-12-19 09:42 | NUR ---
RN NOTE PT C/O FEELING ANXIOUS AND REQUESTED FOR HER ATIVAN. ATIVAN 1MG PO GIVEN ORDERED PRN DAILY FOR ANXIETY. WILL MONITOR AND REASSESS PT.
[2021-12-19] MEDS: ENSURE ENLIVE 237 ML LIQUID (VANILLA) PO SCH ×2 (12:23→16:58)
[2021-12-19 16:02] VITALS: BP 121/58
--- NOTE | 2021-12-19 19:10 | NUR ---
MS RN CLOSING NOTE PT AWAKE AND RESTING IN BED. PT A/OX4, ABLE TO MAKE NEEDS KNOWN. ON ROOM AIR, TOLERATING WELL. NO SOB NOTED. NOT IN ANY SIGN OF RESPIRATORY DISTRESS. IV ACCESS IN LFA G#20 INTACT AND PATENT. ALL NEEDS ATTENDED. KEPT CLEAN AND COMFORTABLE. SAFETY MEASURES IN PLACE: BED IN LOWEST AND LOCKED POSITION, SIDE RAILS UPX2, AND CALL LIGHT WITHIN EASY REACH. ENDORSED TO RUBBISH COLLECTION SUPERVISOR NURSE FOR ERIS.
[2021-12-19 20:00] VITALS: BP 114/62
--- NOTE | 2021-12-19 20:03 | NUR ---
MS RN OPENING NOTE PT AWAKE AND RESTING IN BED. PT A/OX4, ABLE TO MAKE NEEDS KNOWN. ON ROOM AIR, TOLERATING WELL. NO SOB NOTED. NOT IN ANY SIGN OF RESPIRATORY DISTRESS. IV ACCESS IN LFA G#20 INTACT AND PATENT. ALL NEEDS ATTENDED. KEPT CLEAN AND COMFORTABLE. SAFETY MEASURES IN PLACE: BED IN LOWEST AND LOCKED POSITION, SIDE RAILS UPX2, AND CALL LIGHT WITHIN EASY REACH.
[2021-12-20 06:16] LABS: BASOPHILS # (AUTO) 0.1 K/uL (0.0-0.2); BASOPHILS % (AUTO) 1.3 % (0.0-2.0); EOSINOPHILS % (AUTO) 18.8 % (0.0-6.0); HEMATOCRIT 24 % (33-45); HEMOGLOBIN 7.6 g/dL (11.5-14.8); LYMPHOCYTES # (AUTO) 0.6 K/uL (0.8-4.8); LYMPHOCYTES % (AUTO) 15.3 % (20.0-44.0); MEAN CORPUSCULAR HGB CONC 32 g/dl (31.0-36.0); MEAN CORPUSCULAR VOLUME 87 fL (82-100); MONOCYTES # (AUTO) 0.2 K/uL (0.1-1.30); MONOCYTES % (AUTO) 4.3 % (2.0-12.0); NEUTROPHILS # (AUTO) 2.5 K/uL (1.8-8.9); NEUTROPHILS % (AUTO) 60.3 % (43.0-81.0); PLATELET COUNT (AUTO) 314 K/uL (150-450); RED BLOOD CELL COUNT(AUTO) 2.71 MIL/uL (4.0-5.2); WHITE BLOOD COUNT (AUTO) 4.2 K/uL (4.3-11.0)
[2021-12-20 06:56] LABS: CALCIUM, SERUM 7.9 mg/dL (8.5-10.1); CREATININE 0.6 mg/dL (0.6-1.3); MAGNESIUM 1.9 mg/dL (1.8-2.4); POTASSIUM 3.1 mmol/L (3.5-5.1)
[2021-12-20 07:51] LABS: PHOSPHORUS 3.3 mg/dL (2.5-4.9)
[2021-12-20] MEDS: PANTOPRAZOLE 40 MG TABLET.DR PO SCH (08:08)
[2021-12-20 08:29] VITALS: BP 132/72
[2021-12-20] MEDS: ENSURE CLEAR 237 ML LIQUID (MIX BERRY) PO SCH ×3 (08:43→16:51)
[2021-12-20] MEDS: SERTRALINE HCL 50 MG TABLET PO SCH (08:47)
[2021-12-20] MEDS: DOCUSATE SODIUM 100 MG CAPSULE PO SCH (08:48)
[2021-12-20] MEDS: QUETIAPINE FUMARATE 25 MG TABLET PO SCH ×2 (08:48→16:51)
[2021-12-20] MEDS: ASCORBIC ACID 500 MG TABLET PO SCH (08:48)
[2021-12-20] MEDS: POTASSIUM CHLORIDE 20 MEQ TAB.PRT.SR PO SCH ×2 (08:48→09:50)
[2021-12-20] MEDS: FERROUS SULFATE (325 MG) 325 MG/TAB TABLET PO SCH ×2 (08:48→16:51)
[2021-12-20] MEDS: LORAZEPAM 1 MG TABLET PO PRN (09:43)
--- NOTE | 2021-12-20 09:45 | NUR ---
RN NOTE PT WAS SEEN BY DR. ANNAMARIA CARRILLO, ANESTHESIOLOGY. PER DR. CARRILLO TO GET CONSENT FOR THE SURGERY TRANSRECTAL RESECTION OF RECTAL TUMOR BY DR. LERMA. ALSO PER DR. CARRILLO, PT HAS A HGB RESULT OF 7.6, DR. LERMA ORDERED TO TRANSFUSE PT 1 UNIT OF PRBC TODAY PRIOR TO SOME ANTICIPATED BLOOD LOSS DURING SURGERY. ORDERS CARRIED OUT.
--- NOTE | 2021-12-20 12:35 | NUR ---
RN NOTE PT REFUSED HER CLEAR JOHNSON ENSURE SUPPLEMENT SCHEDULED AT 1200. EXPLAINED RISK AND BENEFITS X3, STILL STRONGLY REFUSED. PER PT IT DOES NOT TASTE GOOD.
[2021-12-20 14:07] VITALS: BP 138/65
--- NOTE | 2021-12-20 14:14 | NUR ---
RN NOTE BLOOD VERIFIED AND WITNESSED BY ALBERTO GOEL. BLOOD TRANSFUSION STARTED. VITAL SIGNS PRIOR TO BLOOD TRANSFUSION IS BP 138/65, P 98, TEMP 99.0, R 18, SPO2 95%. WILL CONTINUE TO MONITOR PT.
[2021-12-20 14:29] VITALS: BP 122/71
--- NOTE | 2021-12-20 14:29 | NUR ---
RN NOTE AFTER 15 MINUTES OF BLOOD TRANSFUSION. PT NOTED WITH ELEVATED TEMP OF 100.6, HR 103. PT HAS NO SIGNS OF RASHES OR HIVES. NO NAUSEA AND VOMITING. NO SOB NOTED. NO C/O CHILLS VOICED OUT FROM PT AT THIS TIME. JUANA AMAYA CHARGED NURSE AND LEVI ANDERSON KRAFT DIGESTER OPERATOR AWARE. MONICA WENT INSIDE PT'S ROOM TO ASSESS WITH ORDERS TO GIVE TYLENOL AND BENADRYL AND TO CONTINUE BLOOD TRANSFUSION AT A SLOW RATE AND TO MONITOR PT AT THIS TIME. VITAL SIGNS: BP 122/71, P 103, R 18, TEMP 100.6, SPO2 95%. WILL CONTINUE TO MONITOR PT.
--- NOTE | 2021-12-20 14:47 | NUR ---
RN NOTE BENADRYL 25MG IVP AND TYLENOL 650MG PO ADMINISTERED ORDERED BY LEVI ANDERSON. WILL MONITOR AND REASSESS PT.
[2021-12-20 14:59] VITALS: BP 126/71
--- NOTE | 2021-12-20 14:59 | NUR ---
RN NOTE AFTER 30 MINUTES OF SLOW RATE BLOOD TRANSFUSION. REASSESSED PT'S TEMP IT'S 99.3, HR 114. PT HAS NO SIGNS OF RASHES OR HIVES. NO C/O CHILLS VOICED OUT. NO C/O NAUSEA AND VOMITING. NO SOB NOTED. JUANA AMAYA, CHARGED NURSE AND LEVI ANDERSON CHIEF ENGINEERING DIVISION AWARE OF THE TEMP DECREASING BUT HEART RATE IS NOW 114. MONICA WENT TO PT'S ROOM AGAIN AND CALLED DR. ERWIN. PER MONICA, TO GIVE PT DECADRON 10MG IVP AND TO CONTINUE BLOOD TRANSFUSION AT A SLOW RATE AND MONITOR PT. IF PT'S HR DOES NOT IMPROVE THEN STOP INFUSION FOR A POSSIBLE REACTION. VITAL SIGNS: BP 126/71, P 114, R 18, TEMP 99.3, SPO2 95%. WILL CONTINUE TO MONITOR PT.
[2021-12-20] MEDS ORDERED: diphenhydrAMINE HCL 50 MG/ML VIAL IV ONE (15:00)
[2021-12-20] MEDS ORDERED: ACETAMINOPHEN 325 MG TABLET PO ONE (15:00)
[2021-12-20] MEDS ORDERED: DEXAMETHASONE SOD PHOSPHATE 10 MG/ML VIAL IV SCH (15:05)
--- NOTE | 2021-12-20 15:18 | NUR ---
RN NOTE DECADRON 10MG IVP ADMINISTERED ORDERED BY LEVI ANDERSON. WILL MONITOR AND REASSESS PT.
--- NOTE | 2021-12-20 15:35 | NUR ---
RN NOTE REASSESSED PT'S HR AFTER DECADRON MEDICATION ADMINISTRATION, PT'S HR IS 110. PER MONICA TO MONITOR ANOTHER 15 MINUTES.
--- NOTE | 2021-12-20 15:50 | NUR ---
RN NOTE REASSESSED PT'S HR AGAIN AFTER 15 MINUTES, PT'S HR IS 109. PER MONICA TO CONTINUE TO MONITOR IT IS TRENDING DOWN.
--- NOTE | 2021-12-20 16:00 | NUR ---
RN NOTE REASSESSED PT'S HR AGAIN, PT'S HR RATE INCREASED TO 116. MADE LEVI ANDERSON AWARE AND PER MONICA TO STOP TRANSFUSION NOW. BLOOD TRANSFUSION STOPPED AND ENDED WITH 80ML TRANSFUSED IN THE PT. MONICA MADE BLOOD BANKMONIQUE AWARE FOR POSSIBLE TRANSFUSION REACTION. MONICA ALSO ORDERED A REACTION WORKUP, URINALYSIS PROFILE, CHEST X-RAY, AND URINE CULTURE. MONIQUE CHARGED NURSE AND DR. KYLAH NIETO ALSO AWARE. PT REMAINS WITH NO SIGNS OF RASHES OR HIVES. NO C/O CHILLS VOICED OUT. NO C/O NAUSEA AND VOMITING. NO SOB NOTED. NO FEVER NOTED. VITAL SIGNS: BP 124/68, P 116, R 18, TEMP 99.5, SPO2 95% ON ROOM AIR.
--- NOTE | 2021-12-20 16:15 | NUR ---
RN NOTE BLOOD RETURNED TO BLOOD BANK WITH REPORT OF TRANSFUSION REACTION INVESTIGATION FORM RECEIVED BY MONIQUE BLOOD BANK STAFF. ALSO BROUGHT THE URINE SPECIMEN.
[2021-12-20 16:43] VITALS: BP 112/62
[2021-12-20 17:06] LABS: BILIRUBIN,URINE NEGATIVE (NEGATIVE); COLOR,URINE YELLOW (YELLOW); LEUKOCYTE ESTERASE ,URINE TRACE (NEGATIVE); NITRITE, URINE NEGATIVE (NEGATIVE); PH,URINE 5.5 (5.0-8.0); PROTEIN,URINE NEGATIVE (NEGATIVE); UGLUCOSE NEGATIVE (NEGATIVE); UROBILINOGEN,URINE 0.2 EU/dL (0.2)
--- NOTE | 2021-12-20 17:30 | NUR ---
RN NOTE REASSESSED PT'S CONDITION. PT REMAINS WITH NO SIGNS OF RASHES OR HIVES. NO C/O CHILLS VOICED OUT. NO C/O NAUSEA AND VOMITING. NO SOB NOTED. NO FEVER NOTED. VITAL SIGNS: BP 127/72, P 108, R 18, TEMP 99.2, SPO2 95% ON ROOM AIR.
[2021-12-20 17:45] LABS: BACTERIA,URINE RARE /HPF (None Seen); MUCUS,URINE Few /LPF (None Seen); SQUAMOUS EPITHELIAL CELL,UR 0-2 /HPF (None Seen)
--- NOTE | 2021-12-20 19:29 | NUR ---
MS RN CLOSING NOTE PT AWAKE AND RESTING IN BED. PT A/OX4, ABLE TO MAKE NEEDS KNOWN. ON ROOM AIR, TOLERATING WELL. NO SOB NOTED. NOT IN ANY SIGN OF RESPIRATORY DISTRESS. IV ACCESS IN R HAND G#22 INTACT AND PATENT. ALL NEEDS ATTENDED. KEPT CLEAN AND COMFORTABLE. SAFETY MEASURES IN PLACE: BED IN LOWEST AND LOCKED POSITION, SIDE RAILS UPX2, AND CALL LIGHT WITHIN EASY REACH. ENDORSED TO DIRECTOR STAFFING NURSE FOR ERIS.
--- NOTE | 2021-12-20 19:30 | NUR ---
noc rn opening received patient in room, a/ox4. no s/s of apparent distress on room air. ambulates with steady gait. denies pain at this time. r. hand #22 g on saline lock. call light within reach, oriented and encouraged with the use of call light. safety in place. patient scheduled for transrectal resection for tomorrow. will continue with patient's plan of care.
[2021-12-20 20:00] VITALS: BP_SYST 115; BP_SYST 116; BP_DIAS 59; BP_DIAS 65
[2021-12-20] MEDS: NA PHOS,M-B/NA PHOS,DI-BA 1 EA ENEMA RC PRN (20:06)
--- NOTE | 2021-12-20 20:12 | NUR ---
NOC RN NOTE DR. LERMA CALLED, ORDERED ENEMA 5 AM. PATIENT MADE AWARE. AGREEABLE.
[2021-12-21] MEDS: NA PHOS,M-B/NA PHOS,DI-BA 1 EA ENEMA RC PRN (05:06)
--- NOTE | 2021-12-21 05:30 | NUR ---
noc rn note enema successfully given. moderate amount of black tarry stool noted with scant amount of blood. will monitor.
[2021-12-21 06:15] LABS: BASOPHILS % (AUTO) 0.4 % (0.0-2.0); EOSINOPHILS % (AUTO) 2.1 % (0.0-6.0); HEMATOCRIT 28 % (33-45); LYMPHOCYTES # (AUTO) 0.5 K/uL (0.8-4.8); LYMPHOCYTES % (AUTO) 6.5 % (20.0-44.0); MEAN CORPUSCULAR HGB CONC 33 g/dl (31.0-36.0); MEAN CORPUSCULAR VOLUME 88 fL (82-100); MONOCYTES # (AUTO) 0.2 K/uL (0.1-1.30); MONOCYTES % (AUTO) 3.1 % (2.0-12.0); NEUTROPHILS % (AUTO) 87.9 % (43.0-81.0); PLATELET COUNT (AUTO) 325 K/uL (150-450); RED BLOOD CELL COUNT(AUTO) 3.14 MIL/uL (4.0-5.2)
[2021-12-21] MEDS ORDERED: BUPIVACAINE MPF 0.5% W/EPI INJ 30 ML VIAL ONE (06:27)
[2021-12-21] MEDS ORDERED: LIDOCAINE 1% INJ 50 ML MDV IJ ONE (06:28)
--- NOTE | 2021-12-21 06:29 | NUR ---
noc rn note patient taken down by 1 OR personnel at this time for surgery. stable condition. v/s as follows: 113/59, hr-89, rr-16, t-97.8, saturation 100% on room air.
[2021-12-21] MEDS ORDERED: ROCURONIUM BROMIDE 50 MG/5 ML ONE (06:59)
[2021-12-21] MEDS ORDERED: HYDROMORPHONE INJ 2 MG/ML DISP.SYRIN ONE (06:59)
[2021-12-21 07:01] LABS: CALCIUM, SERUM 8.3 mg/dL (8.5-10.1); CREATININE 0.6 mg/dL (0.6-1.3); POTASSIUM 3.3 mmol/L (3.5-5.1)
--- NOTE | 2021-12-21 07:24 | NUR ---
noc rn closing report given to ALBERTO Guallpa for continuity of patient care.
[2021-12-21] MEDS: PANTOPRAZOLE 40 MG TABLET.DR PO SCH (07:30)
[2021-12-21] MEDS ORDERED: DEXTROSE 50%-WATER 50 ML DISP.SYRIN ONE (07:43)
--- NOTE | 2021-12-21 07:45 | NUR ---
RN MS NOTES REPORT RECEIVED FROM NIGHT NURSE THAT PATIENT IS OUT FOR SURGERY , DUE MEDS AT 0730 WAS NOT GIVEN
[2021-12-21] MEDS: ENSURE CLEAR 237 ML LIQUID (MIX BERRY) PO SCH ×3 (08:00→17:05)
--- NOTE | 2021-12-21 09:00 | NUR ---
RN NOTES RECEIVED PATIENT FROM SURGERY S/P TRANSRECTAL RESECTION OF TUMOR , V/S TAKEN BP 119 / 60 , O2SAT 97% ROOM AIR , P 77 , RR 18 , NO PAIN AND DISCOMFORT AND NO BLEEDING NOTED
[2021-12-21] MEDS: SERTRALINE HCL 50 MG TABLET PO SCH (10:07)
[2021-12-21] MEDS: ASCORBIC ACID 500 MG TABLET PO SCH (10:08)
[2021-12-21] MEDS: DOCUSATE SODIUM 100 MG CAPSULE PO SCH (10:08)
[2021-12-21] MEDS: QUETIAPINE FUMARATE 25 MG TABLET PO SCH ×2 (10:08→17:03)
[2021-12-21] MEDS: FERROUS SULFATE (325 MG) 325 MG/TAB TABLET PO SCH ×2 (10:08→17:03)
[2021-12-21] MEDS: POTASSIUM CL. PREMIX PERIPHER. 50 ML IV SCH ×2 (10:09→11:13)
[2021-12-21] MEDS: LORAZEPAM 1 MG TABLET PO PRN (10:17)
[2021-12-21 11:55] VITALS: BP 110/72
[2021-12-21 12:00] VITALS: BP 146/91
[2021-12-21 16:00] VITALS: BP 112/60
--- NOTE | 2021-12-21 18:51 | NUR ---
MS RN CLOSING NOTES PATIENT ON BED AWAKE , A/O X 4 AND VERBALLY RESPONSIVE , ROOM AIR , NO SOB OR DISTRESS NOTED , NO C/O OF PAIN A ND DISCOMFORT , ALL DUE MEDS GIVEN ORDERED , ATIVAN 1 MG FOR ANXIETY ORDERED AND WITH HELP , K LEVEL WAS LOW AND REPLACED WITH 20 MEQ IV , IV ACCESS RFA #20 AND RIGHT HAND #24 SL , COVID ANTIGEN ORDERED AND SPECIMEN SENT TO LAB WITH NEGATIVE RESULT, ABLE TO GO TO THE BATHROOM , SAFETY PRECAUTIONS PROVIDED , CALL LIGHTS WITHIN REACH AND ENDORSED TO NEXT SHIFT
--- NOTE | 2021-12-21 19:30 | NUR ---
noc rn opening received patient in room, a/ox4. no s/s of apparent distress on room air. ambulates with steady gait. denies pain at this time. 2 iv access on saline lock. call light within reach, oriented and encouraged with the use of call light. safety in place. will continue with patient's plan of care.
[2021-12-21 20:00] VITALS: BP 113/54
[2021-12-22 05:54] LABS: BASOPHILS % (AUTO) 0.7 % (0.0-2.0); HEMATOCRIT 24 % (33-45); HEMOGLOBIN 7.6 g/dL (11.5-14.8); LYMPHOCYTES # (AUTO) 0.7 K/uL (0.8-4.8); LYMPHOCYTES % (AUTO) 15.8 % (20.0-44.0); MEAN CORPUSCULAR HGB CONC 32 g/dl (31.0-36.0); MEAN CORPUSCULAR VOLUME 88 fL (82-100); MONOCYTES # (AUTO) 0.3 K/uL (0.1-1.30); MONOCYTES % (AUTO) 6.2 % (2.0-12.0); NEUTROPHILS # (AUTO) 3.3 K/uL (1.8-8.9); NEUTROPHILS % (AUTO) 71.3 % (43.0-81.0); PLATELET COUNT (AUTO) 276 K/uL (150-450); RED BLOOD CELL COUNT(AUTO) 2.68 MIL/uL (4.0-5.2); WHITE BLOOD COUNT (AUTO) 4.6 K/uL (4.3-11.0)
[2021-12-22 06:29] LABS: CALCIUM, SERUM 7.9 mg/dL (8.5-10.1); CREATININE 0.6 mg/dL (0.6-1.3); MAGNESIUM 1.9 mg/dL (1.8-2.4); PHOSPHORUS 3.7 mg/dL (2.5-4.9); POTASSIUM 4.1 mmol/L (3.5-5.1)
--- NOTE | 2021-12-22 06:38 | NUR ---
noc rn closing patient in bed, with eyes closed, easy to arouse. a/ox4. no s/s of apparent distress on room air. denies pain. no iv fluids running at this time. all needs attended. all scheduled medications administered. safety kept in place throughout shift. patient for possible d/c today. will endorse to morning shift rn.
--- NOTE | 2021-12-22 07:00 | NUR ---
MS RN OPENING NOTES: RECEIVED PATIENT IN BED, AWAKE, ALERT AND ORIENTED X 4 AND ABLE TO VERBALIZED NEEDS. NO SOB OR CARDIAC DISTRESS NOTED, ON ROOM AIR AND TOLERATING WELL. NOTED WITH RFA GAUGE 20, PATENT, INTACT AND SALINE LOCKED. KEPT RESTED AND COMFORTABLE. SAFETY PRECAUTIONS MAINTAINED: BED LOCKED AND IN LOWEST POSITION, SIDE RAILS UP X 2 CALL LIGHT IN EASY REACH. WILL MONITOR ACCORDINGLY.
[2021-12-22] MEDS: PANTOPRAZOLE 40 MG TABLET.DR PO SCH (07:17)
[2021-12-22 08:00] VITALS: BP 131/62
[2021-12-22] MEDS: ENSURE CLEAR 237 ML LIQUID (MIX BERRY) PO SCH ×2 (08:25→12:04)
[2021-12-22] MEDS: DOCUSATE SODIUM 100 MG CAPSULE PO SCH (08:25)
[2021-12-22] MEDS: ASCORBIC ACID 500 MG TABLET PO SCH (08:26)
[2021-12-22] MEDS: QUETIAPINE FUMARATE 25 MG TABLET PO SCH (08:26)
[2021-12-22] MEDS: SERTRALINE HCL 50 MG TABLET PO SCH (08:26)
[2021-12-22] MEDS: FERROUS SULFATE (325 MG) 325 MG/TAB TABLET PO SCH (08:26)
[2021-12-22] MEDS: LORAZEPAM 1 MG TABLET PO PRN (08:32)
--- NOTE | 2021-12-22 16:10 | NUR ---
INTERNATIONAL BANKER NOTES: PATIENT WAS DC TO [facility]. REPORT GIVEN TO RN SCOTT. PT ALERT AND ORIENTED X 4 AND ABLE TO VERBALIZED NEEDS, NO SOB OR CARDIAC DISTRESS NOTED. DENIES ANY PAIN AT THIS TIME, DISCHARGE INSTRUCTIONS GIVEN TO PT AND VERBALIZED UNDERSTANDING. INSTRUCTED TO FOLLOW UP WITH JANET/ONCO DR ERWIN 1 WEEK OF DC,F/U WITH SPECIALIST. PT VERBALIZED UNDERSTANDING. IV ACCESS REMOVED. IDENTIFICATION BAND IN PLACE. PT LEFT THE UNIT STABLE. BELONGINGS TAKEN WITH THE PT. PT ACCOMPANIED BY PARAMEDICS VIA JOEY.
== END 2021-12-22 16:10 | DRG 375 ==
LOC: ER 16:24 → TELE 20:06 → MED 12-14 16:06
PROVIDERS: ADMIT Internal Medicine; ATTEND Internal Medicine
PROC: 30233N1 Transfusion of Nonautologous Red Blood Cells into Peripheral Vein, Percutaneous Approach (ICD-10-PCS; principal; 2021-12-09)
PROC: 0DBN8ZZ Excision of Sigmoid Colon, Via Natural or Artificial Opening Endoscopic (ICD-10-PCS; 2021-12-17)
PROC: 0DBP8ZX Excision of Rectum, Via Natural or Artificial Opening Endoscopic, Diagnostic (ICD-10-PCS; 2021-12-17)
PROC: 0DBP8ZZ Excision of Rectum, Via Natural or Artificial Opening Endoscopic (ICD-10-PCS; 2021-12-21)
DX: C20 Malignant neoplasm of rectum (principal); D61.818 Other pancytopenia; D62 Acute posthemorrhagic anemia; D68.9 Coagulation defect, unspecified; E44.0 Moderate protein-calorie malnutrition; R64 Cachexia; Z68.1 Body mass index [BMI] 19.9 or less, adult; D75.81 Myelofibrosis; K92.2 Gastrointestinal hemorrhage, unspecified; Z20.822 Contact with and (suspected) exposure to COVID-19; D75.839 Thrombocytosis, unspecified; E87.6 Hypokalemia; J44.9 Chronic obstructive pulmonary disease, unspecified; K63.5 Polyp of colon; R62.7 Adult failure to thrive; D72.819 Decreased white blood cell count, unspecified; E88.09 Other disorders of plasma-protein metabolism, not elsewhere classified; D47.3 Essential (hemorrhagic) thrombocythemia; X58.XXXA Exposure to other specified factors, initial encounter; T80.92XA Unspecified transfusion reaction, initial encounter
CPT/HCPCS: 36415; 71045-TC; 80048-TC; 80053-TC; 80076-TC; 81001; 82378; 82607-TC; 82728-TC; 82962-TC; 83540-TC; 83605-TC; 83615-TC; 83690-TC; 83735-TC; 84100-TC; 84443-TC; 84484-TC; 85025-TC; 85045-TC; 85610-TC; 85730-TC; 86140-TC; 86706; 86803; 86850-TC; 87081-TC; 87086-TC; 87340; 93970-TC; A6402; A6403; C9113; C9803; G0378; J0330; J0690; J1100; J1170; J1200; J1885; J2405; J2704; J3480; J3490; J7030; J7040; J7050; P9016

== ENCOUNTER 2022-08-09 01:40 | Emergency (ER) | payer MEDICARE ==
[~2022-08-09] VITALS: Ht 162.6 cm; Wt 49.9 kg
[~2022-08-09 01:40] MED LIST changes: +ACET-868 PO; +ASPI-1420 PO; +DOCU-141 PO; +FERR325T23 PO; -HYDR500C PO; +HYDR500C2 PO; +MAG30ORA PO; +MAGN400O6 PO; +NA P133E RC; +ONDA4TAB5 PO; +PANT40TA2 PO; +VITA1TAB56 PO
[2022-08-09 02:28] VITALS: BP 152/95
--- NOTE | 2022-08-09 02:28 | NUR ---
CC HEARING VOICES, HAS SUICIDAL THOUGHTS. TAKING PILLS TO KILL HIMSELF, SINCE LAST WEEK AND CANNOT GET HOLD OF HER PCP
[2022-08-09] MEDS ORDERED: LORA-259 PO (02:41)
--- NOTE | 2022-08-09 02:51 | NUR ---
Patient discharged to home in stable condition. Written and verbal after care instructions given. Patient verbalizes understanding of instruction.
[2022-08-09] MEDS ORDERED: LORAZEPAM 1 MG TABLET PO ONE (03:00)
== END 2022-08-09 02:52 | disposition home or self-care (01) ==
LOC: ER 01:46
DX: G47.00 Insomnia, unspecified (principal); F11.23 Opioid dependence with withdrawal; F41.9 Anxiety disorder, unspecified; Z60.2 Problems related to living alone; Z79.899 Other long term (current) drug therapy; Z79.82 Long term (current) use of aspirin

== ENCOUNTER 2022-11-14 14:12 | Inpatient (IN) | payer MEDICARE ==
[~2022-11-14] VITALS: Ht 162.6 cm; Wt 46.7 kg
[2022-11-14 14:41] LABS: BASOPHILS % (AUTO) 0.7 % (0.0-2.0); EOSINOPHILS % (AUTO) 0.4 % (0.0-6.0); HEMATOCRIT 40 % (33-45); LYMPHOCYTES # (AUTO) 1.2 K/uL (0.8-4.8); LYMPHOCYTES % (AUTO) 22.6 % (20.0-44.0); MEAN CORPUSCULAR HEMOGLOBIN 28 PG (26.0-33.0); MEAN CORPUSCULAR HGB CONC 33 g/dl (31.0-36.0); MEAN CORPUSCULAR VOLUME 85 fL (82-100); MONOCYTES # (AUTO) 0.5 K/uL (0.1-1.30); MONOCYTES % (AUTO) 9.2 % (2.0-12.0); NEUTROPHILS # (AUTO) 3.5 K/uL (1.8-8.9); NEUTROPHILS % (AUTO) 67.1 % (43.0-81.0); PLATELET COUNT (AUTO) 619 K/uL (150-450); RED BLOOD CELL COUNT(AUTO) 4.66 MIL/uL (4.0-5.2); RED CELL DISTRIBUTION WIDTH 14.6 % (11.5-15.0); WHITE BLOOD COUNT (AUTO) 5.3 K/uL (4.3-11.0)
[2022-11-14 14:53] LABS: CALCIUM, SERUM 9.2 mg/dL (8.5-10.1); CARBON DIOXIDE 23 mmol/L (21-32); CHLORIDE 95 mmol/L (98-107); CREATININE 0.8 mg/dL (0.6-1.3); GLUCOSE 74 mg/dL (74-106); POTASSIUM 3.5 mmol/L (3.5-5.1); SODIUM SERUM 132 mmol/L (136-145); UREA NITROGEN, BLOOD 15 mg/dL (7-18)
[2022-11-14 14:59] LABS: ACETAMINOPHEN <10 ug/ml (10-30); ALANINE AMINOTRANSFERASE 28 U/L (12-78); ALCOHOL, BLOOD < 3 mg/dL (0-10); ALKALINE PHOSPHATASE 77 U/L (46-116); ASPARTATE AMINOTRANSFERASE 22 U/L (15-37); BILIRUBIN,DIRECT 0.2 mg/dL (0.0-0.2); BILIRUBIN,TOTAL 0.7 mg/dL (0.2-1.0); SALICYLATE 2.4 mg/dL (2.8-20.0); TOTAL PROTEIN, SERUM 7.3 g/dL (6.4-8.2)
[2022-11-14 15:12] LABS: APPEARANCE,URINE CLEAR (CLEAR); BILIRUBIN,URINE NEGATIVE (NEGATIVE); BLOOD, URINE TRACE-INTA Ery/uL (NEGATIVE); COLOR,URINE YELLOW (YELLOW); KETONES,URINE 1+ mg/dL (NEGATIVE); LEUKOCYTE ESTERASE ,URINE NEGATIVE (NEGATIVE); NITRITE, URINE NEGATIVE (NEGATIVE); PH,URINE 5.5 (5.0-8.0); PROTEIN,URINE NEGATIVE (NEGATIVE); UGLUCOSE NEGATIVE (NEGATIVE); UROBILINOGEN,URINE 0.2 EU/dL (0.2)
[2022-11-14 15:22] LABS: AMPHETAMINE, URINE NEGATIVE (NEGATIVE); BARBITURATE, URINE NEGATIVE (NEGATIVE); BENZODIAZEPINE, URINE NEGATIVE (NEGATIVE); CANNABINOID, URINE NEGATIVE (NEGATIVE); COCCAINE, URINE NEGATIVE (NEGATIVE); OPIATE, URINE NEGATIVE (NEGATIVE); PHENCYCLIDINE SCREEN,URINE NEGATIVE (NEGATIVE)
[2022-11-14] MEDS ORDERED: LORAZEPAM 0.5 MG TABLET PO ONE (15:30)
[2022-11-14] MEDS ORDERED: LORAZEPAM 0.5 MG TABLET ONE (15:39)
[2022-11-14] MEDS ORDERED: SERT100T12 PO (16:23)
[2022-11-14] MEDS ORDERED: OLAN10TA3 PO (16:23)
[2022-11-14 17:06] LABS: ADD URINE CULTURE NO; BACTERIA,URINE None seen /HPF (None Seen); SQUAMOUS EPITHELIAL CELL,UR 0-2 /HPF (None Seen); WBC,URINE 0-2 /HPF (0-3)
[2022-11-14] MEDS ORDERED: ACETAMINOPHEN 325 MG TABLET PO PRN (18:30)
[2022-11-14] MEDS ORDERED: ZOLPIDEM TARTRATE 5 MG TABLET PO PRN (18:30)
[2022-11-14] MEDS ORDERED: MAGNESIUM HYDROXIDE 30 ML UDC PO PRN (18:30)
[2022-11-14] MEDS ORDERED: MAG HYDROX/AL HYDROX/SIMETH 30 ML UDC PO PRN (18:30)
[2022-11-14] MEDS ORDERED: LORAZEPAM 0.5 MG TABLET PO PRN (18:30)
[2022-11-14] MEDS ORDERED: BLOOD SUGAR DIAGNOSTIC 1 EACH STRIP IN ONE (18:30)
[2022-11-14 18:43] VITALS: BP 169/74; TEMP 97.7; O2SAT 96
[2022-11-14 20:40] VITALS: BP 144/67; TEMP 98.4; O2SAT 98
[2022-11-15 07:17] LABS: ALBUMIN 3.7 g/dL (3.4-5.0); BILIRUBIN,TOTAL 0.6 mg/dL (0.2-1.0); CALCIUM, SERUM 8.7 mg/dL (8.5-10.1); CREATININE 0.7 mg/dL (0.6-1.3); POTASSIUM 3.3 mmol/L (3.5-5.1); TOTAL PROTEIN, SERUM 6.8 g/dL (6.4-8.2)
[2022-11-15 08:00] VITALS: BP 145/83; TEMP 98.7; O2SAT 97
[2022-11-15] MEDS ORDERED: POTASSIUM CHLORIDE 20 MEQ TAB.PRT.SR PO SCH (10:00)
[2022-11-15] MEDS: SERTRALINE HCL 50 MG TABLET PO SCH (11:10)
[2022-11-15] MEDS: OLANZAPINE 5 MG TABLET PO SCH ×2 (11:10→17:04)
[2022-11-15 16:00] VITALS: BP 144/79; TEMP 98.7; O2SAT 99
[2022-11-15 20:25] VITALS: BP 119/69; TEMP 97.7; O2SAT 98
[2022-11-15] MEDS: LORAZEPAM 0.5 MG TABLET PO SCH (21:13)
[2022-11-16 08:00] VITALS: BP 138/78; TEMP 97.4; O2SAT 97
[2022-11-16] MEDS: SERTRALINE HCL 50 MG TABLET PO SCH (08:09)
[2022-11-16] MEDS: OLANZAPINE 5 MG TABLET PO SCH ×2 (08:09→16:35)
[2022-11-16 16:00] VITALS: BP 131/77; TEMP 98.1; O2SAT 93
[2022-11-16] MEDS: ENSURE ENLIVE 237 ML LIQUID (VANILLA) PO SCH (16:35)
[2022-11-16 20:28] VITALS: BP 128/82; TEMP 97.5; O2SAT 99
[2022-11-16] MEDS: LORAZEPAM 0.5 MG TABLET PO SCH (21:19)
[2022-11-16] MEDS: SENNOSIDES 8.6 MG TABLET PO SCH (21:19)
[2022-11-17 08:00] VITALS: BP 141/74; TEMP 97.9; O2SAT 98
[2022-11-17] MEDS: SERTRALINE HCL 50 MG TABLET PO SCH (08:09)
[2022-11-17] MEDS: ENSURE ENLIVE 237 ML LIQUID (VANILLA) PO SCH ×2 (08:09→17:34)
[2022-11-17] MEDS: OLANZAPINE 5 MG TABLET PO SCH ×2 (08:10→17:34)
[2022-11-17 16:00] VITALS: BP 127/70; TEMP 97.3; O2SAT 97
[2022-11-17 20:00] VITALS: BP 123/64; TEMP 97.3; O2SAT 97
[2022-11-17] MEDS: SENNOSIDES 8.6 MG TABLET PO SCH (21:20)
[2022-11-17] MEDS: LORAZEPAM 0.5 MG TABLET PO SCH (21:20)
[2022-11-18 08:11] VITALS: BP 147/68; TEMP 97.9; O2SAT 97
[2022-11-18] MEDS: ENSURE ENLIVE 237 ML LIQUID (VANILLA) PO SCH ×2 (09:31→18:06)
[2022-11-18] MEDS: SERTRALINE HCL 50 MG TABLET PO SCH (09:31)
[2022-11-18] MEDS: OLANZAPINE 5 MG TABLET PO SCH ×2 (09:31→16:34)
[2022-11-18] MEDS: hydrOXYzine PAMOATE 25 MG CAPSULE PO PRN (15:02)
[2022-11-18 16:00] VITALS: BP 134/69; TEMP 97.8; O2SAT 97
[2022-11-18 20:00] VITALS: BP 114/67; TEMP 97.6; O2SAT 98
[2022-11-18] MEDS: LORAZEPAM 0.5 MG TABLET PO SCH (21:34)
[2022-11-18] MEDS: SENNOSIDES 8.6 MG TABLET PO SCH (21:34)
[2022-11-19] MEDS: hydrOXYzine PAMOATE 25 MG CAPSULE PO PRN ×3 (04:57→21:53)
[2022-11-19 08:00] VITALS: BP 113/59; TEMP 97.8; O2SAT 96
[2022-11-19] MEDS: OLANZAPINE 5 MG TABLET PO SCH ×2 (08:20→16:24)
[2022-11-19] MEDS: ENSURE ENLIVE 237 ML LIQUID (VANILLA) PO SCH ×2 (08:21→17:29)
[2022-11-19] MEDS: SERTRALINE HCL 50 MG TABLET PO SCH (09:45)
[2022-11-19 16:00] VITALS: BP 129/66; TEMP 97.4; O2SAT 100
[2022-11-19 20:55] VITALS: BP 104/60; TEMP 97.8; O2SAT 100
[2022-11-19] MEDS: LORAZEPAM 0.5 MG TABLET PO SCH (21:31)
[2022-11-19] MEDS: SENNOSIDES 8.6 MG TABLET PO SCH (21:31)
[2022-11-20] MEDS: hydrOXYzine PAMOATE 25 MG CAPSULE PO PRN ×2 (06:10→14:35)
[2022-11-20 08:00] VITALS: BP 119/60; TEMP 98.6; O2SAT 94
[2022-11-20] MEDS: PAROXETINE HCL 20 MG TABLET PO SCH (08:04)
[2022-11-20] MEDS: OLANZAPINE 5 MG TABLET PO SCH ×2 (08:05→16:04)
[2022-11-20] MEDS: ENSURE ENLIVE 237 ML LIQUID (VANILLA) PO SCH ×2 (08:06→17:00)
[2022-11-20 16:00] VITALS: BP 129/69; TEMP 97.7; O2SAT 98
[2022-11-20] MEDS: LORAZEPAM 0.5 MG TABLET PO SCH (21:22)
[2022-11-20] MEDS: SENNOSIDES 8.6 MG TABLET PO SCH (21:22)
[2022-11-21] MEDS: hydrOXYzine PAMOATE 25 MG CAPSULE PO PRN ×2 (04:54→14:19)
[2022-11-21] MEDS: PAROXETINE HCL 20 MG TABLET PO SCH (08:11)
[2022-11-21] MEDS: OLANZAPINE 5 MG TABLET PO SCH ×2 (08:11→16:59)
[2022-11-21] MEDS: ENSURE ENLIVE 237 ML LIQUID (VANILLA) PO SCH ×2 (08:11→16:59)
[2022-11-21 08:13] VITALS: BP 131/61; TEMP 97.6; O2SAT 98
[2022-11-21 16:02] VITALS: BP 148/73; TEMP 97.8; O2SAT 98
[2022-11-21] MEDS ORDERED: PAROXETINE HCL 10 MG TABLET PO SCH (17:00)
[2022-11-21 20:23] VITALS: BP 129/69; TEMP 97.9; O2SAT 97
[2022-11-21] MEDS: LORAZEPAM 0.5 MG TABLET PO SCH (21:12)
[2022-11-21] MEDS: SENNOSIDES 8.6 MG TABLET PO SCH (21:12)
[2022-11-22] MEDS: hydrOXYzine PAMOATE 25 MG CAPSULE PO PRN ×3 (03:37→21:28)
[2022-11-22 08:00] VITALS: BP 129/75; TEMP 98.2; O2SAT 96
[2022-11-22] MEDS: OLANZAPINE 5 MG TABLET PO SCH ×2 (08:25→16:28)
[2022-11-22] MEDS: PAROXETINE HCL 20 MG TABLET PO SCH (08:25)
[2022-11-22] MEDS: ENSURE ENLIVE 237 ML LIQUID (VANILLA) PO SCH ×2 (08:26→16:28)
[2022-11-22 16:00] VITALS: BP 120/69; TEMP 98.1; O2SAT 100
[2022-11-22 20:14] VITALS: BP 122/68; TEMP 97.5; O2SAT 94
[2022-11-22] MEDS: SENNOSIDES 8.6 MG TABLET PO SCH (21:14)
[2022-11-23 08:00] VITALS: BP 133/72; TEMP 98.7; O2SAT 99
[2022-11-23] MEDS: hydrOXYzine PAMOATE 25 MG CAPSULE PO PRN ×2 (08:00→16:24)
[2022-11-23] MEDS: PAROXETINE HCL 20 MG TABLET PO SCH (08:00)
[2022-11-23] MEDS: OLANZAPINE 5 MG TABLET PO SCH ×2 (08:00→16:11)
[2022-11-23] MEDS: ENSURE ENLIVE 237 ML LIQUID (VANILLA) PO SCH ×2 (08:00→16:11)
[2022-11-23 16:00] VITALS: BP 139/75; TEMP 97.9; O2SAT 98
[2022-11-23 20:57] VITALS: BP 128/61; TEMP 97.9; O2SAT 99
[2022-11-23] MEDS: SENNOSIDES 8.6 MG TABLET PO SCH (21:05)
[2022-11-24] MEDS: hydrOXYzine PAMOATE 25 MG CAPSULE PO PRN ×3 (00:45→18:10)
[2022-11-24 08:00] VITALS: BP 142/70; TEMP 98.2; O2SAT 99
[2022-11-24] MEDS: ENSURE ENLIVE 237 ML LIQUID (VANILLA) PO SCH ×2 (08:08→16:13)
[2022-11-24] MEDS: PAROXETINE HCL 20 MG TABLET PO SCH (08:17)
[2022-11-24] MEDS: OLANZAPINE 5 MG TABLET PO SCH ×2 (08:17→16:13)
[2022-11-24] MEDS: busPIRone 5 MG TABLET PO SCH ×3 (10:07→16:13)
[2022-11-24 16:00] VITALS: BP 143/62; TEMP 98.1; O2SAT 97
[2022-11-24 20:09] VITALS: BP 103/64; TEMP 98.2; O2SAT 98
[2022-11-24] MEDS: SENNOSIDES 8.6 MG TABLET PO SCH (21:12)
[2022-11-25] MEDS: hydrOXYzine PAMOATE 25 MG CAPSULE PO PRN ×2 (07:34→15:44)
[2022-11-25 08:00] VITALS: BP 117/70; TEMP 97.8; O2SAT 98
[2022-11-25] MEDS: OLANZAPINE 5 MG TABLET PO SCH ×2 (08:04→16:33)
[2022-11-25] MEDS: busPIRone 5 MG TABLET PO SCH ×3 (08:05→16:34)
[2022-11-25] MEDS: ENSURE ENLIVE 237 ML LIQUID (VANILLA) PO SCH ×3 (08:07→17:00)
[2022-11-25 16:00] VITALS: BP 124/72; TEMP 98.2; O2SAT 98
[2022-11-25 20:00] VITALS: BP 118/65; TEMP 98; O2SAT 100
[2022-11-25] MEDS: SENNOSIDES 8.6 MG TABLET PO SCH (21:17)
[2022-11-26] MEDS: hydrOXYzine PAMOATE 25 MG CAPSULE PO PRN (06:26)
[2022-11-26 08:00] VITALS: BP 126/71; TEMP 97.7; O2SAT 99
[2022-11-26] MEDS: busPIRone 5 MG TABLET PO SCH ×5 (08:19→21:23)
[2022-11-26] MEDS: OLANZAPINE 5 MG TABLET PO SCH ×2 (08:19→16:39)
[2022-11-26] MEDS: ENSURE ENLIVE 237 ML LIQUID (VANILLA) PO SCH ×2 (08:21→17:14)
[2022-11-26 16:00] VITALS: BP 125/76; TEMP 97.4; O2SAT 97
[2022-11-26] MEDS: SENNOSIDES 8.6 MG TABLET PO SCH (21:23)
[2022-11-26 22:28] VITALS: BP 116/64; TEMP 97.6; O2SAT 96
[2022-11-27 08:00] VITALS: BP 128/72; TEMP 97.9; O2SAT 99
[2022-11-27] MEDS: OLANZAPINE 5 MG TABLET PO SCH ×2 (08:12→17:55)
[2022-11-27] MEDS: busPIRone 5 MG TABLET PO SCH ×4 (08:12→21:35)
[2022-11-27] MEDS: ENSURE ENLIVE 237 ML LIQUID (VANILLA) PO SCH ×2 (08:13→17:54)
[2022-11-27] MEDS: hydrOXYzine PAMOATE 25 MG CAPSULE PO PRN (14:37)
[2022-11-27 16:00] VITALS: BP 128/68; TEMP 97.9; O2SAT 97
[2022-11-27 20:08] VITALS: BP 128/93; TEMP 98.2; O2SAT 96
[2022-11-27] MEDS: SENNOSIDES 8.6 MG TABLET PO SCH (21:35)
[2022-11-28 08:00] VITALS: BP 123/68; TEMP 97.9; O2SAT 99
[2022-11-28] MEDS: ENSURE ENLIVE 237 ML LIQUID (VANILLA) PO SCH ×2 (08:37→17:59)
[2022-11-28] MEDS: OLANZAPINE 5 MG TABLET PO SCH ×2 (08:38→18:00)
[2022-11-28] MEDS: busPIRone 5 MG TABLET PO SCH ×4 (08:38→21:09)
[2022-11-28] MEDS: hydrOXYzine PAMOATE 25 MG CAPSULE PO PRN ×2 (10:47→21:09)
[2022-11-28 16:00] VITALS: BP 125/82; TEMP 97.9; O2SAT 98
[2022-11-28 21:04] VITALS: BP 136/73; TEMP 98; O2SAT 98
[2022-11-28] MEDS: SENNOSIDES 8.6 MG TABLET PO SCH (21:09)
[2022-11-29 08:00] VITALS: BP 120/73; TEMP 97.7; O2SAT 99
[2022-11-29] MEDS: ENSURE ENLIVE 237 ML LIQUID (VANILLA) PO SCH ×2 (08:40→17:06)
[2022-11-29] MEDS: OLANZAPINE 5 MG TABLET PO SCH ×2 (08:58→16:40)
[2022-11-29] MEDS: hydrOXYzine PAMOATE 25 MG CAPSULE PO PRN ×2 (08:58→21:03)
[2022-11-29] MEDS: busPIRone 5 MG TABLET PO SCH ×3 (09:00→16:40)
[2022-11-29 16:00] VITALS: BP 124/76; TEMP 98.2; O2SAT 98
[2022-11-29 19:50] VITALS: BP 135/67; TEMP 97.7; O2SAT 100
[2022-11-29] MEDS: SENNOSIDES 8.6 MG TABLET PO SCH (21:03)
[2022-11-30 08:00] VITALS: BP 107/67; TEMP 98.7; O2SAT 99
[2022-11-30] MEDS: OLANZAPINE 5 MG TABLET PO SCH ×2 (08:17→16:28)
[2022-11-30] MEDS: busPIRone 5 MG TABLET PO SCH ×3 (08:17→16:28)
[2022-11-30] MEDS: ENSURE ENLIVE 237 ML LIQUID (VANILLA) PO SCH ×2 (08:20→17:18)
[2022-11-30] MEDS: hydrOXYzine PAMOATE 25 MG CAPSULE PO PRN ×2 (09:11→20:54)
[2022-11-30 16:00] VITALS: BP 136/72; TEMP 97.1; TEMP 97.7; O2SAT 97; O2SAT 99
[2022-11-30 20:54] VITALS: BP 128/80; TEMP 97.7; O2SAT 95
[2022-11-30] MEDS: SENNOSIDES 8.6 MG TABLET PO SCH (21:02)
[2022-12-01 08:00] VITALS: BP 132/71; TEMP 98.1; O2SAT 100
[2022-12-01] MEDS: OLANZAPINE 5 MG TABLET PO SCH ×2 (08:21→16:21)
[2022-12-01] MEDS: busPIRone 5 MG TABLET PO SCH ×3 (08:21→16:21)
[2022-12-01] MEDS: ENSURE ENLIVE 237 ML LIQUID (VANILLA) PO SCH ×2 (08:21→16:21)
[2022-12-01 16:00] VITALS: BP 112/73; TEMP 98.1; O2SAT 100
[2022-12-01 20:15] VITALS: BP 128/71; TEMP 97.5; O2SAT 98
[2022-12-01] MEDS: SENNOSIDES 8.6 MG TABLET PO SCH (21:48)
[2022-12-02 08:00] VITALS: BP 124/77; TEMP 97.9; O2SAT 96
[2022-12-02] MEDS: hydrOXYzine PAMOATE 25 MG CAPSULE PO PRN ×2 (08:31→17:38)
[2022-12-02] MEDS: busPIRone 5 MG TABLET PO SCH ×3 (08:32→17:09)
[2022-12-02] MEDS: ENSURE ENLIVE 237 ML LIQUID (VANILLA) PO SCH ×2 (08:32→17:09)
[2022-12-02] MEDS: OLANZAPINE 5 MG TABLET PO SCH ×2 (08:32→17:09)
[2022-12-02 16:00] VITALS: BP 134/63; TEMP 97.8; O2SAT 100
[2022-12-02 20:00] VITALS: BP 131/64; TEMP 98.1; O2SAT 97
[2022-12-02] MEDS: SENNOSIDES 8.6 MG TABLET PO SCH (21:37)
[2022-12-03 08:00] VITALS: BP 114/75; TEMP 97.9; O2SAT 98
[2022-12-03] MEDS: OLANZAPINE 5 MG TABLET PO SCH (08:31)
[2022-12-03] MEDS: busPIRone 5 MG TABLET PO SCH ×2 (08:31→12:22)
[2022-12-03] MEDS: ENSURE ENLIVE 237 ML LIQUID (VANILLA) PO SCH (09:08)
== END 2022-12-03 13:40 | DRG 885 ==
LOC: ER 14:19 → GPS 17:29 → GPSOV 11-17 16:16 → MEDOV2 11-18 13:21 → GPS 11-18 13:28
PROVIDERS: ADMIT Psychiatry & Neurology Psychiatry; ATTEND Student in an Organized Health Care Education/Training Program
DX: F33.3 Major depressive disorder, recurrent, severe with psychotic symptoms (principal); E43 Unspecified severe protein-calorie malnutrition; R45.851 Suicidal ideations; E87.1 Hypo-osmolality and hyponatremia; R64 Cachexia; Z68.1 Body mass index [BMI] 19.9 or less, adult; F13.20 Sedative, hypnotic or anxiolytic dependence, uncomplicated; F29 Unspecified psychosis not due to a substance or known physiological condition; F41.1 Generalized anxiety disorder; D75.839 Thrombocytosis, unspecified; E86.1 Hypovolemia; E87.6 Hypokalemia; K59.00 Constipation, unspecified; Z73.6 Limitation of activities due to disability; Z20.822 Contact with and (suspected) exposure to COVID-19; F25.1 Schizoaffective disorder, depressive type
CPT/HCPCS: 36415; 80048-TC; 80053-TC; 80061-TC; 80076-TC; 81001; 84443-TC; 85025-TC; C9803; G0480; Q0177